=== PATIENT | female | born 1940 | race Caucasian/White ===

== ENCOUNTER 2023-09-19 06:17 | Inpatient (IN) | payer OTHER, SELFPAY ==
--- NOTE | 2023-08-23 08:08 | CM ---
Addendum entered by Milana Lora 09/03/23 10:27:
Spoke with patient's daughter, Estephania. She states that it will be difficult for them to get patient back and forth to outpatient PT. Discussed option of VN services which they feel would be best.
Addendum entered by Milana Lora 08/23/23 08:49:
Spoke again with patient. Her family would prefer that she spend one night in the hospital due to her 's care needs. Her children will stay with her . Reviewed orthopedic program and post surgical plans. She will go directly to
outpatient PT at .
Original Note:
Patient is scheduled for an elective L THR on 09/19/23- she is a same day patient. Spoke with patient prior to surgery. Patient had a L TKR at also as a same day patient) in 2021. Reintroduced role of Orthopedic Navigator. Patient reports that she
lives with her (who has dementia and requires care) in a one story home. There are no steps to enter and two steps inside the house. She currently functions independently. She has a cane and rolling walker. She had VN services through VN
after her TKR. PCP is Dr. Richard Lemus.
Discussed orthopedic program and post surgical plans. Reviewed that she will have VN services initially (medicare.gov website and ratings reviewed) and will then start outpatient PT. Patient selects VN (face sheet faxed to VN to facilitate
confirmation of benefits) for her home care needs and will come to for outpatient PT.
Patient is in agreement with plan and states that her daughters (she has three who live close by) will be home with her. Her daughters will also assist with the care of her .
Patient will complete online education.
Plan: Orthopedic Navigator will remain available to assist with the care of patient and will reassess discharge needs after surgery.
[2023-08-31 12:51] VITALS: BMI 25.0
[2023-08-31 13:56] LABS: Hematocrit 35.6 % (37.0-47.0); Hemoglobin 11.8 g/dL (12.0-16.0); Mean Corp Hgb Conc. 33.1 g/dL (33.0-37.0); Mean Corpuscular Volume 93.4 fL (81.0-99.0); Mean Platelet Volume 9.2 fL (7.4-10.4); Platelet Count 179 10^3/uL (130-400); Red Blood Cell Count 3.81 10^6/uL (4.20-5.40); Red Cell Dist. Width 12.2 % (11.5-14.5); White Blood Cell Count 4.8 10^3/uL (4.8-10.8)
[2023-08-31 14:34] LABS: ALT (SGPT) 32 U/L (0-35); AST (SGOT) 39 U/L (14-36); Albumin 4.1 g/dl (3.5-5.0); Alkaline Phosphatase 96 U/L (38-126); Blood Urea Nitrogen 24 mg/dl (7-17); Calcium 9.2 mg/dl (8.4-10.2); Carbon Dioxide 25 mmol/L (22-30); Chloride 106 mmol/L (98-107); Estimated Creatinine Clearance 38 ml/min; Glucose 96 mg/dl (70-99); Potassium 4.3 mmol/L (3.5-5.1); Sodium 140 mmol/L (135-145); Total Bilirubin 0.7 mg/dl (0.2-1.3); Total Protein 6.3 g/dl (6.3-8.2); eGFR > 60.00
--- NOTE | 2023-08-31 15:25 | HPS.HSE ---
Family Physician
-
Family Physician: Richard Lemus
Chief Complaint
-
Advanced primary osteoarthritis of the left hip.
History of Present Illness
The patient is an 82 year old female presenting today for advanced primary osteoarthritis of the left hip. The patient previously underwent an uncomplicated left total knee arthroplasty in [address] Cameron Preciado. She returns to
[facility] today with complaints of significant left hip pain associated with her osteoarthritis. She notes that her current pain is greatly interfering with her activities of daily living and is overall impacting her quality of life. She
has tried and failed multiple conservative treatment measures in the past for her pain. These conservative treatment measures include physical therapy, self directed therapeutic exercises, activity modification, corticosteroid injections, medical
management with Tylenol and NSAIDs, and the application of ice and/or heat. A recent x-ray of the left hip confirmed moderate osteoarthritis. She was determined to be in need of a left total hip arthroplasty. She denies any current complaints today
such as chest pain, shortness of breath, palpitations, nausea, vomiting, diarrhea, lightheadedness, dizziness, cough, sore throat, or fever.
Medical History
Past Medical History
Past Medical History: Reports Other
Additional Past Medical History:
1. Osteoarthritis, status post left total knee arthroplasty, 11/2021, by Dr. Cameron Preciado.
2. Elevated blood pressure without diagnosis of hypertension.
3. Hyperlipidemia.
4. TIA, 2013, without residual deficits.
5. Solitary fibrous tumor of pleura, status post surgical intervention.
6. GERD.
7. Small hiatal hernia.
8. Non-obstructive Schatzki ring.
9. History of H. pylori, treated.
10. GI ulcer, 2018, without bleed.
11. Diverticulosis.
12. Hepatic steatosis.
13. Bilateral renal parapelvic cysts.
14. Chronic superior endplate fracture of T12 and moderate compression fracture of L1.
15. Lumbosacral stenosis.
16. Sciatica.
17. Ambulatory dysfunction.
18. Mild anemia.
19. Osteoporosis.
20. Depression.
Past Surgical History: Reports Other
Additional Past Surgical History:
1. Left total knee arthroplasty, 11/2021, by Dr. Cameron Preciado.
2. Partial hysterectomy and bladder lift.
3. Cholecystectomy.
4. Cholangiogram.
5. Solitary fibrous tumor excision from pleura.
6. Endoscopy x2.
7. Colonoscopy.
Social History
Tobacco: Non-smoker
Alcohol: Other (Rare. )
Personal:
Living: Other (She lives with her in a 1 story cottage. Of note, her has dementia and significant spinal stenosis, requiring him to be wheelchair bound. )
Family History
Family History: Not pertinent
Allergies / Home Medications
Allergy/Medication List:
Home medications:
1. Atorvastatin 20 mg p.o. daily.
2. Acetaminophen 1000 mg p.o. every 6 hours as needed.
3. Escitalopram oxalate 10 mg p.o. every evening.
4. Omeprazole 40 mg p.o. daily.
5. Ascorbic acid 500 mg p.o. twice a day.
6. Cyanocobalamin 1000 mcg p.o. daily.
7. Famotidine 20 mg p.o. at bedtime.
8. Fiber 1 tablet p.o. daily.
9. Meloxicam 15 mg p.o. daily.
10. Trazodone 100 mg p.o. at bedtime.
11. Turmeric 500 mg p.o. daily.
Allergies: No known allergies.
Review of Systems
-
A 12 point ROS was completed and negative except as noted: Yes
Physical Exam
Vital Signs
Blood pressure 143/70. Heart rate 60. Respirations 18. Pulse ox 98%.
Height 5 feet, 1 inch. Weight 59.9 kg. BMI 25.0.
Physical Exam
General: Well Developed, Well Nourished and No Apparent Distress
HEENT: NormoCephalic, Moist mucous membranes, Atraumatic and PERRLA
Respiratory: Clear
Cardiac: Regular Rhythm
GI: Soft, Non Tender and Non Distended
Musculoskeletal: Other (Right hip: 5 internal, 10 external, with pain. Left hip: 5 internal, 15 external with movement of the left hip. )
Skin: Warm and Dry
Neuro: AO x 3 and Nonfocal/grossly intact
Laboratory Results
-
08/31/23 12:43
08/31/23 12:43
Laboratory Results
Total Bilirubin 0.7 mg/dl (0.2-1.3) 08/31/23 12:43
AST 39 U/L (14-36) H 08/31/23 12:43
ALT 32 U/L (0-35) 08/31/23 12:43
Alkaline Phosphatase 96 U/L (38-126) 08/31/23 12:43
Hemoglobin A1c 5.5.
MRSA nasal screen negative.
EKG 08/31/2023: Normal sinus rhythm.
Impression/Plan
-
CLEARANCES:
1. Primary medical, Kenna Sanders PA-C, cleared.
Primary medical phone number: [phone].
2. Dental waived. The patient has full dentures.
IMPRESSION/PLAN:
1. Advanced primary osteoarthritis of the left hip in need of a left total hip arthroplasty with Dr. Cameron Preciado on 09/19/2023. The benefits and risks of the procedure have been explained to the patient. The patient understands these risks and
wishes to proceed.
2. DVT prophylaxis: Aspirin with bilateral venous compression devices.
3. Ambulatory dysfunction: The patient will be placed on fall precautions post-operatively.
Patient's phone number: [phone].
Patient's contact (Estephania Cuadra - Daughter): [phone].
[2023-08-31 16:47] VITALS: BMI 25.0
[2023-09-01 09:41] LABS: Glycohemoglobin (HgbA1c) 5.5 % (4.0-5.6)
[2023-09-19] VITALS (13 sets, daily range): BP systolic 96–132; BP diastolic 45–73; PULSE 66; O2SAT 96–97; BMI 25.0
[2023-09-19] MEDS: CELEBREX 200 MG PO (06:36)
[2023-09-19] MEDS: TYLENOL 650 MG PO ×4 (06:36→20:35)
[2023-09-19] MEDS: NORMOSOL-R 1000 IV (07:00)
--- NOTE | 2023-09-19 10:13 | PTCARENOTE ---
Pt arrived to 2S in bed. Full assessment completed. L hip aqaucell C/D/I, LLE with decreased movement and sensation, neurovascular assessment otherwise intact. IVF infusing per order. Pt denies pain at this time. Bed locked and in the lowest
position, safety maintained. Oriented to room and call vito, daughter at bedside. Pt resting between care.
[2023-09-19] MEDS: VITAMIN B-12 1000 MCG PO (10:26)
[2023-09-19] MEDS: PROTONIX 40 MG PO (10:27)
[2023-09-19] MEDS: LIPITOR 20 MG PO (10:27)
[2023-09-19] MEDS: PEPCID 20 MG PO (10:27)
[2023-09-19] MEDS: NSS 1000 IV (10:30)
[2023-09-19] MEDS: ROXICODONE 5 MG PO (10:55)
[2023-09-19] MEDS: DILAUDID 0.5 MG IV (13:28)
--- NOTE | 2023-09-19 14:41 | W.PN.ORTHO ---
Today's Communication / Plan
-
D/c when clinically stable.
Assessment
.
Distal Motor Intact: Yes
Dressing:
Clean, dry and intact.
Assessment:
L hip OA s/p Bartolo timmons/ Dr Preciado 09/19/23
- s/p L TKA, 11/2021, by Dr Preciado
DVT prophylaxis - ASA, b/l venous compression devices
Elevated blood pressure without diagnosis of HTN - monitor BP
- Ensure adequate pain control
GERD, small hiatal hernia, and GI ulcer, 2018, without bleed - continue Pepcid, PPI therapy
- Minimize NSAIDs as able
Sciatica - continue Gabapentin HS - consider increased dose to accommodate for post-surgical pain
Ambulatory dysfunction - on fall precautions
Mild anemia - non-invasive hgb in AM
Hyperlipidemia
TIA, 2013, without residual deficits
Solitary fibrous tumor of pleura, status post surgical intervention
Non-obstructive Schatzki ring
History of H. pylori, treated
Diverticulosis
Hepatic steatosis
Bilateral renal parapelvic cysts
Chronic superior endplate fracture of T12 and moderate compression fracture of L1
Lumbosacral stenosis
Osteoporosis
Depression
Plan
.
Surgery / Date: Bartolo timmons/ Dr Preciado 09/19/23
DVT Prophylaxis: Aspirin
Activity:
Out of bed.
PT/OT
Discharge Plan: Home w/ VN
Subjective
.
.:
Patient resting comfortably in bed.
Reported visual hallucination after IV Dilaudid - will d/c.
Denies any other new complaints.
Vital Signs and Labs
.
Vital Signs and Labs:
Lab Results
08/31/23 12:43
08/31/23 12:43
Temp Pulse Resp BP Pulse Ox
97.2 F 61 17 121/62 96
09/19/23 09:45 06/26/24 09:55 09/19/23 09:55 09/19/23 09:55 09/19/23 09:55
Physical Exam
-
HEENT: No pallor, cyanosis, or jaundice. Throat clear.
NECK: Supple. No JVD.
RESPIRATORY: Lungs clear to auscultation.
CVS: S1, S2 normal. RRR.�
ABDOMEN: Soft, non-tender. No distension.
EXTREMITIES: Strength equal, no calf pain with palpation/dorsiflexion. Calves soft.
PREMISES TECHNICIAN: AOx3. No focal deficits. chrome worker grossly intact
[2023-09-19] MEDS: ROXICODONE 10 MG PO (15:47)
[2023-09-19] MEDS: ANCEF 5 IV (15:48)
[2023-09-19] MEDS: LEXAPRO 10 MG PO (17:20)
[2023-09-19] MEDS: ASPIRIN 325 MG PO (17:20)
[2023-09-19] MEDS: COMPAZINE 5 MG IV (18:36)
[2023-09-19] MEDS: SENOKOT 17.1999999999999993 MG PO (20:35)
[2023-09-19] MEDS: COLACE 100 MG PO (20:35)
[2023-09-19] MEDS: DECADRON 4 MG PO (20:35)
[2023-09-19] MEDS: BACTROBAN 2% OINTMENT 1 APPLIC NASAL (20:35)
[2023-09-19] MEDS: DESYREL 100 MG PO (22:03)
[2023-09-19] MEDS: NEURONTIN 300 MG PO (22:03)
[2023-09-20] MEDS: ANCEF 5 IV (00:25)
[2023-09-20] MEDS: TYLENOL 650 MG PO ×4 (00:25→12:55)
[2023-09-20 04:34] VITALS: BP 99/57
[2023-09-20] MEDS: ROXICODONE 10 MG PO (05:46)
[2023-09-20] MEDS: PROTONIX 40 MG PO (07:48)
[2023-09-20] MEDS: DECADRON 4 MG PO (07:48)
[2023-09-20] MEDS: VITAMIN B-12 1000 MCG PO (07:49)
[2023-09-20] MEDS: PEPCID 20 MG PO (07:49)
[2023-09-20] MEDS: ASPIRIN 325 MG PO (07:49)
[2023-09-20] MEDS: LIPITOR 20 MG PO (07:49)
[2023-09-20] MEDS: COLACE 100 MG PO (07:49)
[2023-09-20] MEDS: BACTROBAN 2% OINTMENT 1 APPLIC NASAL (07:51)
[2023-09-20] MEDS: SENOKOT 17.1999999999999993 MG PO (07:51)
[2023-09-20 07:53] VITALS: BP 101/51
--- NOTE | 2023-09-20 08:57 | CM ---
Addendum entered by Milana Lora 09/20/23 12:22:
Met with patient after therapy. She has no concerns about going home. Reviewed VN services again and recommended she have someone with her for all mobility initially.
Original Note:
Reviewed chart and held rounds with PT, OT and nursing. Patient admitted as planned for elective L THR. Met with patient at bedside. Confirmed information previously obtained for assessment. Also discussed discharge plans. The plan is for patient to
return home at discharge. Her daughters will be staying with her and her . Reviewed VN services including start of care (tentatively 09/20), services to be ordered (PT, OT, SN) and frequency/duration of services. Options list provided and PAC
data reviewed. Patient selects VN.
Patient has a rolling walker, raised toilet seat, hip kit (which her daughter got yesterday) and a cane at home.
VN referral was completed and sent to [facility] through [email or web address] with request for start of care on 09/20. Confirmation received of their ability to accept case. return to factory clerk to fax discharge instructions to [facility] when complete.
Patient will use [facility] pharmacy for discharge prescriptions.
Discharge plans were reviewed with patient's daughter, Estephania, on 09/19.
[2023-09-20 09:45] VITALS: BP 130/58; BP 131/55; PULSE 59; O2SAT 95
[2023-09-20 12:23] VITALS: BP 99/73; PULSE 63; O2SAT 96
--- NOTE | 2023-09-20 12:35 | W.PN.ORTHO ---
Today's Communication / Plan
-
D/c today since clinically stable, did well w/ PT and OT.
Assessment
.
Distal Motor Intact: Yes
Dressing:
Clean, dry and intact.
Assessment:
L hip OA s/p L MALCOLM w/ Dr Preciado 09/19/23
- s/p L TKA, 11/2021, by Dr Preciado
DVT prophylaxis - ASA, b/l venous compression devices
N/V POD 1 - likely 2* multiple medications on empty stomach - Compazine provided w/ relief
- Continue Compazine prn upon d/c
- Continue home Protonix and Pepcid
Elevated blood pressure without diagnosis of HTN - BPs stable
- Ensured adequate pain control
GERD, small hiatal hernia, and GI ulcer, 2018, without bleed - continue Pepcid, PPI therapy
- Minimize NSAIDs as able
Sciatica - continue Gabapentin HS - consider increased dose to accommodate for post-surgical pain
Ambulatory dysfunction - on fall precautions
Mild anemia - non-invasive hgb 10.5 POD 1
- Asymptomatic, hemodynamically stable
Hyperlipidemia
TIA, 2013, without residual deficits
Solitary fibrous tumor of pleura, status post surgical intervention
Non-obstructive Schatzki ring
History of H. pylori, treated
Diverticulosis
Hepatic steatosis
Bilateral renal parapelvic cysts
Chronic superior endplate fracture of T12 and moderate compression fracture of L1
Lumbosacral stenosis
Osteoporosis
Depression
Plan
.
Surgery / Date: L MALCOLM w/ Dr Preciado 09/19/23
DVT Prophylaxis: Aspirin
Activity:
Out of bed.
PT/OT
Discharge Plan: Home w/ VN
Subjective
.
.:
Patient resting comfortably in her chair this AM.
One episode of vomiting today - improving w/ Compazine this AM. Feels much better.
Denies any other new significant complaints.
L hip pain overall well controlled w/ current meds.
Eager for potential d/c today.
Vital Signs and Labs
.
Vital Signs and Labs:
Lab Results
08/31/23 12:43
08/31/23 12:43
Temp Pulse Resp BP Pulse Ox
97.8 F 63 18 101/51 94
09/20/23 07:53 09/20/23 07:53 09/20/23 07:53 09/20/23 07:53 09/20/23 07:53
Non-invasive Hgb result: 10.5
Physical Exam
-
HEENT: No pallor, cyanosis, or jaundice. Throat clear.
NECK: Supple. No JVD.
RESPIRATORY: Lungs clear to auscultation.
CVS: S1, S2 normal. RRR.�
ABDOMEN: Soft, non-tender. No distension.
EXTREMITIES: Strength equal, no calf pain with palpation/dorsiflexion. Calves soft.
AQUATIC PERFORMER: AOx3. No focal deficits. reservoir engineer grossly intact
--- NOTE | 2023-09-20 12:50 | W.DS.TRANS ---
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
-
Discharge Instructions:
Sleep Apnea Risk Low
Discharge Diagnosis/Procedures L hip OA s/p L MALCOLM w/ Dr Preciado 09/19/23
Diet Other diet
Additional Diets Diabetic carb controlled x1 week for wound
healing/infection prevention; then resume
regular diet
Activity As tolerated,With Walker
Driving Restrictions Not until seen by your
Bathing Restrictions OK to Shower
Other Services VN,PT,OT
Wound Care Dressing to be removed 1 week post-surgery.
Instructions:
Stand-Alone Forms: Total Hip/Knee Replacement D/C
Changes to Home Medications: Yes
Discharge Medications:
DC Medications w/original date entered in [employer]
atorvastatin 20 mg tablet 20 mg PO DAILY High Cholesterol 12/05/21
escitalopram oxalate 10 mg tablet 10 mg PO QPM Depression 12/05/21
omeprazole 40 mg capsule,delayed release 40 mg PO DAILY Fluid Retention/Swelling 12/05/21
ascorbic acid (vitamin C) 500 mg tablet (Vitamin C) 500 mg PO BID Supplement 08/30/23
cyanocobalamin (vitamin B-12) 1,000 mcg tablet (Vitamin B-12) 1,000 mcg PO DAILY Supplement 08/30/23
famotidine 20 mg tablet 20 mg PO DAILY Gastrointestinal Issue 08/30/23
fiber 1 tab PO DAILY Constipation 08/30/23
trazodone 100 mg tablet 100 mg PO HS Sleep 08/30/23
turmeric 500 mg PO DAILY Supplement 08/30/23
mupirocin 2 % topical ointment 1 applic intranasal BID #1 tube 08/31/23
gabapentin 300 mg tablet 300 mg PO HS Neurological Condition 09/19/23
acetaminophen 500 mg tablet (Acetaminophen Extra Strength) 1,000 mg (2 x 500 mg) PO Q6H #60 tabs 09/20/23
aspirin 325 mg tablet 325 mg PO DAILY #30 tabs 09/20/23
dexamethasone 4 mg tablet 4 mg PO BID Anti-inflammatory #5 tabs 06/27/24
docusate sodium 100 mg capsule 100 mg PO BID #30 caps 09/20/23
oxycodone 5 mg tablet 5 - 10 mg (1 - 2 x 5 mg) PO Q6H PRN moderate-severe pain #30 tabs 09/20/23
prochlorperazine maleate 5 mg tablet 5 mg PO Q8H PRN nausea and vomiting #30 tabs 09/20/23
sennosides 8.6 mg tablet (Senna Laxative) 17.2 mg (2 x 8.6 mg) PO BID #30 tabs 09/20/23
Home Medication Changes
acetaminophen 500 mg tablet (Acetaminophen Extra Strength) 1,000 mg (2 x 500 mg) PO Q6H #60 tabs 09/20/23
aspirin 325 mg tablet 325 mg PO DAILY #30 tabs 09/20/23
dexamethasone 4 mg tablet 4 mg PO BID Anti-inflammatory #5 tabs 09/20/23
docusate sodium 100 mg capsule 100 mg PO BID #30 caps 09/20/23
oxycodone 5 mg tablet 5 - 10 mg (1 - 2 x 5 mg) PO Q6H PRN moderate-severe pain #30 tabs 09/20/23
prochlorperazine maleate 5 mg tablet 5 mg PO Q8H PRN nausea and vomiting #30 tabs 09/20/23
sennosides 8.6 mg tablet (Senna Laxative) 17.2 mg (2 x 8.6 mg) PO BID #30 tabs 09/20/23
Pending Results: No
[2023-09-20 13:01] VITALS: BP 144/53
== END 2023-09-20 14:28 | disposition home health service (06) | DRG 470 ==
LOC: 2 SOUTH 06:17
PROVIDERS: ADMITTING PHYSICIAN Orthopaedic Surgery; FAMILY PHYSICIAN Family Medicine
PROC: 0SRB039 Replacement of Left Hip Joint with Ceramic Synthetic Substitute, Cemented, Open Approach (ICD-10-PCS; 2023-09-19)
DX: M16.12 Unilateral primary osteoarthritis, left hip (principal); K76.0 Fatty (change of) liver, not elsewhere classified; D64.9 Anemia, unspecified; F32.A Depression, unspecified; K22.2 Esophageal obstruction; N28.1 Cyst of kidney, acquired; E78.5 Hyperlipidemia, unspecified; K21.9 Gastro-esophageal reflux disease without esophagitis; K44.9 Diaphragmatic hernia without obstruction or gangrene; R03.0 Elevated blood-pressure reading, without diagnosis of hypertension; K57.90 Diverticulosis of intestine, part unspecified, without perforation or abscess without bleeding; M48.07 Spinal stenosis, lumbosacral region; M54.16 Radiculopathy, lumbar region; M81.0 Age-related osteoporosis without current pathological fracture; R26.89 Other abnormalities of gait and mobility; R11.2 Nausea with vomiting, unspecified; Z96.652 Presence of left artificial knee joint; Z79.899 Other long term (current) drug therapy; Z87.11 Personal history of peptic ulcer disease; Z86.73 Personal history of transient ischemic attack (TIA), and cerebral infarction without residual deficits; Z87.09 Personal history of other diseases of the respiratory system; Z90.49 Acquired absence of other specified parts of digestive tract; Z87.81 Personal history of (healed) traumatic fracture; Z88.1 Allergy status to other antibiotic agents
CPT/HCPCS: 36415; 73502; 80053; 83036; 85027; 86850; 86900; 86901; 87070; 93005; 97110; 97116; 97163; 97167; 97530; 97535; C1713; C1776

== ENCOUNTER 2023-09-27 15:03 | Emergency (ER) | payer OTHER, SELFPAY ==
[2023-09-27 15:18] VITALS: BP 143/95
--- NOTE | 2023-09-27 16:42 | ED.MUSCINJ ---
HPI-Injury
General
Chief Complaint: Musculo-Skeletal Complaint
Source: patient and family
Exam Limitations: none
Time Seen by Provider: 09/27/23 16:00
Nursing documentation reviewed up to this point in time: agreed with
History of Present Illness-Injury
Initial Injury comments:
82-year-old female with history of TIA, HLD, GERD had a left total hip replacement on 09/18/2023. States she was doing very well until yesterday she developed pain across the front of her left ankle and lower part of her calf. Denies shortness of
breath or chest pain.
Past History
Past History
ED Past Medical History: CVA (TIA), GERD and Hypercholesterolemia
ED Past Surgical History: Gynecological and Orthopedic (Left knee replacement 2021, left total hip replacement 09/18/2023)
Social History
Tobacco: Non-smoker
Alcohol: None
Drug: None
Personal:
Living: with family
Employment: Retired
Family History
Family History: Other (Noncontributory)
Review of Systems
Review of Systems
Allergies reviewed?: Yes
All Other Systems: ROS reviewed and negative except as documented in HPI and ROS
Constitutional: Denies fever
Respiratory: Denies trouble breathing
Cardiac: Denies chest pain
ABD/GI: Denies abdominal pain or nausea
: Denies dysuria, difficulty voiding or urgency
Musculoskeletal: Reports other (Pain left ankle and lower calf. Left hip pain is improving and she feels she is healing well from her DOMINIQUE)
Skin: Reports no symptoms
Neurological: Reports no symptoms
Phy Exam
Physical Exam
Physical Exam:
GENERAL: No acute distress. A&Ox3.
CONSTITUTIONAL: Afebrile. clear.
CARDIOVASCULAR: Regular rate and rhythm, no murmurs, no rubs.
GI: Soft, nontender
MUSCULOSKELETAL: No redness, warmth or swelling of the left lower extremity. Tender to palpate mid to lower calf. Moves with ease. Well perfused.
SKIN: Warm, dry, pink
PSYCH: Normal mood and affect. Well kept, interactive and appropriate
NEUROLOGIC: Awake, alert and oriented. No focal neurological deficits
Injury Course
Orders/Labs/Results
Orders:
Orders
09/27/23 15:23
Ankle, left 3 view CR [CR Ankle - Left Min 3 Views ] Urgent
Comment:
Reason For Exam: pain
09/27/23 16:04
US Periph Venous LOWER Ext LT Urgent
Comment:
Reason For Exam: pain about ankle and lower calf, recent surgery
09/27/23 18:22
Apixaban [Eliquis] 10 mg PO NOW STA
Barrel Washer Machine consulted with Physician
Barrel Washer Machine consulted with physician?: Yes
Name of Physician Consulted: Radha
MDM/Problems Addressed
Differential Diagnosis Includes:
DVT, musculoskeletal pain
MDM/Problems Addressed:
82-year-old female with history of TIA, HLD, GERD had a left total hip replacement on 09/18/2023. States she was doing very well until yesterday she developed pain across the front of her left ankle and lower part of her calf. Denies shortness of
breath or chest pain.
6:15 PM
IMPRESSION:
Linear noncompressible hypoechoic area in the mid calf deep to the lesser saphenous vein considered suspicious for thrombus but somewhat difficult to localize.
US equivocal, will give pt option of starting Eliquis.
Ultrasound result discussed with the patient and daughter, offered to have her stay with her daily aspirin and have the ultrasound repeated in a week or start Eliquis. She has a prescheduled appointment with her PCP in 5 days. She opts to stop the
aspirin, start the Eliquis and get a repeat ultrasound through her PCP.
Case discussed with Dr. Garcia who agrees with assessment and plan.
*Critical Care Note
Total Time (30-74mins, 75-104mins- exclusive of procedures): Not Applicable
ED Attending Note
-
Portions of this chart may have been created with voice recognition software.� Occasional wrong word or��sound alike� substitutions may have occurred due to the inherent limitations of voice recognition software.
Discharge Plan
Departure
Patient Disposition: Home (Routine Discharge)
Date of Disposition: 09/27/23
Time of Disposition: 18:22
Patient with high blood pressure during this ER visit?: No
Condition: Good
Discharge Problem:
DVT (deep venous thrombosis)
Instructions: Apixaban, Deep vein thrombosis - Discharge instructions
Prescriptions:
New
Eliquis 5 mg tablet
5 mg PO BID Qty: 70 0RF
Rx Instructions:
10 mg BID x 7 days then 5 mg BID
No Action
atorvastatin 20 mg Tablet
20 mg PO DAILY
omeprazole 40 mg Capsule,Delayed Release(Dr/Ec)
40 mg PO DAILY
escitalopram oxalate 10 mg Tablet
10 mg PO QPM
famotidine 20 mg Tablet
20 mg PO DAILY
trazodone 100 mg Tablet
100 mg PO HS
cyanocobalamin (vitamin B-12) [Vitamin B-12] 1,000 mcg Tablet
1,000 mcg PO DAILY
ascorbic acid (vitamin C) [Vitamin C] 500 mg Tablet
500 mg PO BID
fiber Tablet
1 tab PO DAILY
turmeric
500 mg PO DAILY
Hold Instructions: Resume on 09/26/23.
mupirocin 2 % ointment
1 applic intranasal BID Qty: 1 0RF
Patient Comments:
applied this am 09/19/23 at 0500
gabapentin 300 mg Tablet
300 mg PO HS
aspirin 325 mg Tablet
325 mg PO DAILY Qty: 30 0RF
Rx Instructions:
Take daily x4 weeks for blood clot prevention.
prochlorperazine maleate 5 mg Tablet
5 mg PO Q8H PRN (Reason: nausea and vomiting) Qty: 30 0RF
docusate sodium 100 mg Capsule
100 mg PO BID Qty: 30 0RF
dexamethasone 4 mg Tablet
4 mg PO BID Qty: 5 0RF
Rx Instructions:
Restart night of discharge and continue twice a day until finished.
Take with food.
oxycodone 5 mg Tablet
5 - 10 mg PO Q6H PRN (Reason: moderate-severe pain) Qty: 30 0RF
Rx Instructions:
1 tab for moderate pain, 2 if severe.
Dx total joint
sennosides [Senna Laxative] 8.6 mg Tablet
17.2 mg PO BID Qty: 30 0RF
acetaminophen [Acetaminophen Extra Strength] 500 mg tablet
1,000 mg PO Q6H Qty: 60 0RF
Rx Instructions:
DO NOT exceed >4000 mg daily.
Referrals:
Richard Lemus MD [Family Provider] - Keep scheduled appt
Activity Restrictions/Additional Instructions:
As we discussed, we will treat you for a clot with Eliquis
You may stop your Aspirin while on the Eliquis
I sent a prescription to your pharmacy for Eliquis to take : 10 mg twice a day for 7 days then 5 mg twice a day until your doctor tells you to stop
Have repeat ultrasound in 7-10 days.
Keep your appointment with your PCP in 5 days.
Interventions
Interventions:
*Risk Screen - Suicide Last Done: 09/27/23 15:18
*General Assessment Last Done: 09/27/23 15:18
*Neglect/Abuse Screening Last Done: 09/27/23 15:18
ED- Fall Risk Assessment Last Done: 09/27/23 19:11
*ED COVID-19 Vaccine History Last Done: 09/27/23 19:11
*Nursing Disposition Last Done: 09/27/23 19:11
ED-Musculoskeletal Assessment Last Done: 09/27/23 18:18
Discharge Date and Time
Print Language: URUGUAYAN
[2023-09-27 18:16] VITALS: BP 100/82; BMI 25.4
[2023-09-27] MEDS: ELIQUIS 10 MG PO (18:50)
== END 2023-09-27 19:11 | disposition home or self-care (01) ==
LOC: EMR 15:03
PROVIDERS: EMERGENCY PHYSICIAN Emergency Medicine; FAMILY PHYSICIAN Family Medicine
DX: I82.462 Acute embolism and thrombosis of left calf muscular vein (principal); K21.9 Gastro-esophageal reflux disease without esophagitis; E78.00 Pure hypercholesterolemia, unspecified; Z86.73 Personal history of transient ischemic attack (TIA), and cerebral infarction without residual deficits
CPT/HCPCS: 99284; 73610; 93971

== ENCOUNTER 2023-10-02 11:05 | Emergency (ER) | payer OTHER, SELFPAY ==
[2023-10-02 11:06] VITALS: BP 115/72
--- NOTE | 2023-10-02 12:04 | ED.GENMED ---
History of Present Illness
General
Chief Complaint: Musculo-Skeletal Complaint
Time Seen by Provider: 10/02/23 11:35
History of Present Illness
History of Present Illness:
82-year-old female presents the emergency department for evaluation of left gluteal pain after a fall last night. She is 2-week status post left total hip arthroplasty performed by Dr. Preciado. Rehab has been going well until her trip and fall
last night. She landed on her buttocks and had intense pain that prevented her from ambulating this morning. Of note she is also on Eliquis for a DVT diagnosed recently
Past History
Past History
ED Past Medical History: CVA (TIA), GERD and Hypercholesterolemia
ED Past Surgical History: Gynecological and Orthopedic (Left knee replacement 2021, left total hip replacement 09/18/2023)
Social History
Tobacco: Non-smoker
Alcohol: None
Drug: None
Personal:
Living: with family
Employment: Retired
Family History
Family History: Other (Noncontributory)
Review of Systems
Review of Systems
Allergies reviewed?: Yes
All Other Systems: ROS reviewed and negative except as documented in HPI and ROS
Phy Exam
Physical Exam
Physical Exam:
GEN: Well appearing, NAD, WDWN
HEENT: Oral mucosa moist, no scleral icterus
Cardiac: Regular rate
Lung: No respiratory distress, no tachypnea
MSK: Status post left MALCOLM, incision is well-approximated with no dehiscence or discharge. Left hip range of motion is normal. Numerous ecchymoses to the left gluteal region as well as the left lateral thigh which are likely postoperative in nature.
Tenderness to the left gluteal region
Skin: Good color, no pallor or jaundice, no rashes
Neuro: AO x3, moves all extremities freely
Psych: Calm, cooperative
Course
Orders/Labs/Results
Orders:
Orders
10/02/23 11:47
CR Hip - LT w/wo Pel 2-3 Vw* Urgent
Comment:
Reason For Exam: fall, recent L MALCOLM
Include a pelvis x-ray?: Yes
10/02/23 12:33
Acetaminophen [Tylenol] 1,000 mg PO NOW STA
Oxycodone [Roxicodone] 5 mg PO NOW STA
Vital Signs
Initial and Last Documented VS:
Initial Vital Signs
Temp Pulse Resp BP Pulse Ox
98.5 F 63 18 115/72 97
10/02/23 11:06 10/02/23 11:06 10/02/23 11:06 10/02/23 11:06 10/02/23 11:06
Last Documented Vital Signs
Temp Pulse Resp BP Pulse Ox
98.5 F 62 18 120/71 97
10/02/23 11:06 10/02/23 13:00 10/02/23 13:00 10/02/23 13:00 10/02/23 11:06
MDM/Problems Addressed
MDM/Problems Addressed:
X-rays of the left hip and pelvis show no evidence for acute osseous abnormality. The patient was given analgesics and was ambulated with walker assistance and tolerated this well. Educated her to ice liberally to prevent or decrease hematoma
formation given that she is on anticoagulants
*Critical Care Note
Total Time (30-74mins, 75-104mins- exclusive of procedures): Not Applicable
ED Attending Note
-
Portions of this chart may have been created with voice recognition software.� Occasional wrong word or��sound alike� substitutions may have occurred due to the inherent limitations of voice recognition software.
Discharge Plan
Departure
Patient Disposition: Home (Routine Discharge)
Date of Disposition: 10/02/23
Time of Disposition: 13:28
Patient with high blood pressure during this ER visit?: No
Discharge Problem:
Contusion of left buttock
Instructions: Contusion (DC)
Prescriptions:
New
oxycodone 5 mg tablet
5 mg PO Q8H PRN (Reason: Pain) Qty: 10 0RF
No Action
atorvastatin 20 mg Tablet
20 mg PO DAILY
omeprazole 40 mg Capsule,Delayed Release(Dr/Ec)
40 mg PO DAILY
escitalopram oxalate 10 mg Tablet
10 mg PO QPM
famotidine 20 mg Tablet
20 mg PO DAILY
trazodone 100 mg Tablet
100 mg PO HS
cyanocobalamin (vitamin B-12) [Vitamin B-12] 1,000 mcg Tablet
1,000 mcg PO DAILY
ascorbic acid (vitamin C) [Vitamin C] 500 mg Tablet
500 mg PO BID
fiber Tablet
1 tab PO DAILY
turmeric
500 mg PO DAILY
Hold Instructions: Resume on 09/26/23.
mupirocin 2 % ointment
1 applic intranasal BID Qty: 1 0RF
Patient Comments:
applied this am 09/19/23 at 0500
gabapentin 300 mg Tablet
300 mg PO HS
aspirin 325 mg Tablet
325 mg PO DAILY Qty: 30 0RF
Rx Instructions:
Take daily x4 weeks for blood clot prevention.
prochlorperazine maleate 5 mg Tablet
5 mg PO Q8H PRN (Reason: nausea and vomiting) Qty: 30 0RF
docusate sodium 100 mg Capsule
100 mg PO BID Qty: 30 0RF
dexamethasone 4 mg Tablet
4 mg PO BID Qty: 5 0RF
Rx Instructions:
Restart night of discharge and continue twice a day until finished.
Take with food.
oxycodone 5 mg Tablet
5 - 10 mg PO Q6H PRN (Reason: moderate-severe pain) Qty: 30 0RF
Rx Instructions:
1 tab for moderate pain, 2 if severe.
Dx total joint
sennosides [Senna Laxative] 8.6 mg Tablet
17.2 mg PO BID Qty: 30 0RF
acetaminophen [Acetaminophen Extra Strength] 500 mg tablet
1,000 mg PO Q6H Qty: 60 0RF
Rx Instructions:
DO NOT exceed >4000 mg daily.
Eliquis 5 mg tablet
5 mg PO BID Qty: 70 0RF
Rx Instructions:
10 mg BID x 7 days then 5 mg BID
Referrals:
Richard Lemus MD [Family Provider] -
Activity Restrictions/Additional Instructions:
Ice often, as you are more likely to develop a hematoma (collection of blood) due to the Eliquis
Take pain medication as needed
Continue rehab exercises
Interventions
Interventions:
*Risk Screen - Suicide Last Done: 10/02/23 11:42
*General Assessment Last Done: 10/02/23 11:42
*Neglect/Abuse Screening Last Done: 10/02/23 11:42
ED- Fall Risk Assessment Last Done: 10/02/23 12:05
*ED COVID-19 Vaccine History Last Done: 10/02/23 11:42
*Nursing Disposition Last Done: 10/02/23 13:57
ED-Musculoskeletal Assessment Last Done: 10/02/23 11:42
Discharge Date and Time
Discharge Date/Time: 10/02/23 13:59
Print Language: PASHTO
[2023-10-02 12:05] VITALS: BP 128/63
[2023-10-02 12:11] VITALS: BP 119/65
[2023-10-02] MEDS: TYLENOL 1000 MG PO (12:42)
[2023-10-02] MEDS: ROXICODONE 5 MG PO (12:42)
[2023-10-02 13:00] VITALS: BP 120/71
== END 2023-10-02 13:59 | disposition home or self-care (01) ==
LOC: EMR 11:05
PROVIDERS: EMERGENCY PHYSICIAN Emergency Medicine; FAMILY PHYSICIAN Family Medicine
DX: S30.0XXA Contusion of lower back and pelvis, initial encounter (principal); W01.0XXA Fall on same level from slipping, tripping and stumbling without subsequent striking against object, initial encounter; E78.00 Pure hypercholesterolemia, unspecified; K21.9 Gastro-esophageal reflux disease without esophagitis; Z79.01 Long term (current) use of anticoagulants; Z98.890 Other specified postprocedural states; Z96.642 Presence of left artificial hip joint; Z96.652 Presence of left artificial knee joint; Z86.73 Personal history of transient ischemic attack (TIA), and cerebral infarction without residual deficits; Z88.5 Allergy status to narcotic agent
CPT/HCPCS: 99283; 73502

== ENCOUNTER → 2023-10-23 11:28 | Outpatient (REF) | payer OTHER, SELFPAY | LOC: HWRAD 11:28 | PROVIDERS: ATTENDING PHYSICIAN Physician Assistant Medical | DX: I82.462 Acute embolism and thrombosis of left calf muscular vein (principal) | CPT/HCPCS: 93971 ==

== ENCOUNTER 2023-11-12 15:53 | Outpatient (RCR) | payer OTHER, SELFPAY | END 2023-11-12 23:59 | disposition home or self-care (01) | LOC: RPT 15:53 | PROVIDERS: ATTENDING PHYSICIAN Orthopaedic Surgery; FAMILY PHYSICIAN Family Medicine | DX: R26.89 Other abnormalities of gait and mobility (principal); Z96.642 Presence of left artificial hip joint; Z73.6 Limitation of activities due to disability | CPT/HCPCS: 97110; 97112; 97162 ==

== ENCOUNTER 2023-12-14 14:04 | Outpatient (RCR) | payer OTHER, SELFPAY | END 2023-12-14 23:59 | disposition home or self-care (01) | LOC: RPT 14:04 | PROVIDERS: ATTENDING PHYSICIAN Orthopaedic Surgery; FAMILY PHYSICIAN Family Medicine | DX: Z47.1 Aftercare following joint replacement surgery (principal); Z96.642 Presence of left artificial hip joint; R26.89 Other abnormalities of gait and mobility; Z73.6 Limitation of activities due to disability | CPT/HCPCS: 97110; 97112 ==

== ENCOUNTER 2024-01-04 23:33 | Observation (INO) | payer OTHER, SELFPAY ==
[2024-01-04] VITALS (8 sets, daily range): BP systolic 125–170; BP diastolic 54–79; BMI 24.7
[2024-01-04 15:59] LABS: % Basophils 0.3 % (0-2); % Eosinophils 1.9 % (0-6); % Immature Granulocytes 0.4 % (0-0.5); % Lymphocytes 28.5 % (20.5-51.1); % Monocytes 10.2 % (1.7-9.3); % Neutrophils 58.7 % (42.2-75.2); Absolute Eosinophils 0.1 10^3/uL (0-0.7); Absolute Lymphocytes 1.9 10^3/uL (1.2-3.4); Absolute Monocytes 0.7 10^3/uL (0.1-0.6); Absolute Neutrophils 3.9 10^3/uL (1.4-6.5); Hematocrit 36.5 % (37.0-47.0); Hemoglobin 12.6 g/dL (12.0-16.0); Mean Corp Hgb Conc. 34.5 g/dL (33.0-37.0); Mean Corpuscular Hgb 29.6 pg (27.0-31.0); Mean Corpuscular Volume 85.9 fL (81.0-99.0); Mean Platelet Volume 9.9 fL (7.4-10.4); Nucleated Red Blood Cells % 0 %; Platelet Count 178 10^3/uL (130-400); Red Blood Cell Count 4.25 10^6/uL (4.20-5.40); Red Cell Dist. Width 12.4 % (11.5-14.5); White Blood Cell Count 6.7 10^3/uL (4.8-10.8)
[2024-01-04 16:09] LABS: ALT (SGPT) 25 U/L (0-35); AST (SGOT) 33 U/L (14-36); Albumin 4.4 g/dl (3.5-5.0); Alkaline Phosphatase 107 U/L (38-126); Blood Urea Nitrogen 20 mg/dl (7-17); Carbon Dioxide 20 mmol/L (22-30); Chloride 106 mmol/L (98-107); Estimated Creatinine Clearance 40 ml/min; Glucose 178 mg/dl (70-99); Potassium 3.9 mmol/L (3.5-5.1); Sodium 140 mmol/L (135-145); Total Bilirubin 0.6 mg/dl (0.2-1.3); Total Protein 6.4 g/dl (6.3-8.2); eGFR > 60.00
--- NOTE | 2024-01-04 16:34 | EDRN ---
Dr. Urias in to see pt at this time.
--- NOTE | 2024-01-04 16:39 | ED.GENMED ---
Addendum entered and electronically signed by Chrissy Urias MD 01/04/24 22:22:
Unfortunately as patient was leaving the emergency department patient started develop nausea vomiting with dizziness. Will give additional antiemetics. Given the multiple antiemetics and the recurrence of symptoms we will admit patient. Discussed
with hospitalist who accepted.
Original Note:
History of Present Illness
General
Chief Complaint: Dizziness
Time Seen by Provider: 01/04/24 16:18
History of Present Illness
History of Present Illness:
Patient is a 83-year-old woman with history of TIA, reflux presenting to the emergency department with dizziness. Patient states for the past 2 days she has been having dizziness nausea and vomiting. She states that the dizziness yesterday with
intermittent. Today has been constant. She feels off balance lightheaded and dizzy. She does state that it does occur sometimes when she goes from sitting to standing. The symptoms also occurs with certain head movements. She is also has some
pressure in her head. No history of migraines. No fevers or chills. No belly pain. No recent falls. Patient states that she is vomiting secondary to the dizziness. She denies any numbness tingling. No weakness. No double vision. No
difficulty swallowing. No hearing changes. No sick contacts. Per medic she did receive droperidol with some relief however symptoms returned and was given a second dose without any improvement.
Past History
Past History
ED Past Medical History: CVA (TIA), GERD and Hypercholesterolemia
ED Past Surgical History: Gynecological and Orthopedic (Left knee replacement 2021, left total hip replacement 09/18/2023)
Social History
Tobacco: Non-smoker
Alcohol: None
Drug: None
Personal:
Living: with family
Employment: Retired
Family History
Family History: Other (Noncontributory)
Phy Exam
Physical Exam
Physical Exam:
GENERAL: Actively vomiting
HEENT: normocephalic, extraocular movements intact, moist oral mucosa
NECK: normal inspection
RESPIRATORY: no respiratory distress, clear to auscultation bilaterally
CARDIOVASCULAR: regular rate and rhythm
ABDOMEN/: soft, non-distended, non-tender to palpation, no rebound or guarding
EXTREMITIES: non-tender, no edema/swelling
NEUROLOGIC: NEUROLOGIC: alert and oriented x 3, cranial nerves II-XII intact, right upper extremity strength 5/5, left upper extremity strength 5/5, right lower extremity strength 5/5, left lower extremity strength 5/5, normal sensation to light
touch, normal [id number] and [id number], gait not tested formally
SKIN: warm
Course
Orders/Labs/Results
Orders:
Orders
01/04/24 15:24
Electrocardiogram (*1) Urgent
Reason for Study: Chest Pain
EKG- Treatment ONCE
01/04/24 15:36
Cardiac Monitoring- Treatment ONCE
01/04/24 15:41
Complete Blood Count/With Diff Urgent
Comprehensive Metabolic Panel Urgent
01/04/24 16:32
CT Head W/o Iv Contrast Urgent
Comment:
Reason For Exam: dizziness
Metoclopramide [Reglan] 10 mg IV NOW STA
01/04/24 16:50
0.9% Sodium Chloride 500 ml [Nss] 500 ml IV BOLUS
01/04/24 18:41
Ondansetron Injectable [Zofran] 4 mg IV NOW STA
01/04/24 20:47
Acetaminophen [Tylenol] 1,000 mg PO NOW STA
Abnormal Lab Results
01/04/24
15:41
Hct 36.5 L %
(37.0-47.0)
Absolute Monos (auto) 0.7 H 10^3/uL
(0.1-0.6)
Monocytes % 10.2 H %
(1.7-9.3)
Carbon Dioxide 20 L mmol/L
(22-30)
BUN 20 H mg/dl
(7-17)
Glucose 178 H mg/dl
(70-99)
01/04/24 15:41
01/04/24 15:41
Vital Signs
Initial and Last Documented VS:
Initial Vital Signs
Pulse Resp Pulse Ox
66 18 97
01/04/24 15:23 01/04/24 15:23 01/04/24 15:23
Last Documented Vital Signs
Temp Pulse Resp BP Pulse Ox
97.9 F 61 20 131/63 97
01/04/24 15:27 01/04/24 19:00 01/04/24 19:00 01/04/24 19:00 01/04/24 19:00
MDM/Problems Addressed
Differential Diagnosis Includes:
Patient is a 83-year-old woman with history of TIA, reflux presenting to the emergency department with dizziness. Vitals here initially were notable for hypertension though that resolved during my evaluation. Exam is otherwise reassuring.
Differential is broad but could be complex migraine versus posterior CVA versus electrolyte derangement. Could be peripheral vertigo given that there are certain positions currently that are exacerbating the dizziness. Could also be orthostatic
given that it is worse with going from sitting to standing and she has not tolerated p.o. secondary to the vomiting. Could be cardiac such as arrhythmia. Will check blood work EKG and CT scan of her head. Will give additional antiemetics. Will
also treat migraine with Reglan. Will give IV fluids anticipate admission if symptoms ongoing
*Critical Care Note
Total Time (30-74mins, 75-104mins- exclusive of procedures): Not Applicable
Update Note
Update Note:
On reevaluation patient with active vomiting still. Will try different antiemetic.
On reevaluation patient appears much better. She states that Zofran did work. She states that the dizziness has resolved. CT scan was negative. We did discuss the possibility of obtaining an MRI to fully rule out posterior CVA given TIA however
patient is asymptomatic at this time. She would prefer to not be admitted and would follow-up with PCP. On reevaluation patient tolerated p.o. They are requesting discharge which at this time is appropriate given that all symptoms have resolved.
Strict return precautions given. I did prescribe meclizine for the peripheral vertigo episodes.
ED Attending Note
-
Portions of this chart may have been created with voice recognition software.� Occasional wrong word or��sound alike� substitutions may have occurred due to the inherent limitations of voice recognition software.
Discharge Plan
Departure
Patient Disposition: Home (Routine Discharge)
Date of Disposition: 01/04/24
Time of Disposition: 22:03
Patient with high blood pressure during this ER visit?: Yes
Discharge Problem:
Dizziness
Prescriptions:
New
meclizine 12.5 mg tablet
12.5 mg PO TID PRN (Reason: dizziness) Qty: 10 0RF
No Action
atorvastatin 20 mg Tablet
20 mg PO DAILY
omeprazole 40 mg Capsule,Delayed Release(Dr/Ec)
40 mg PO DAILY
escitalopram oxalate 10 mg Tablet
10 mg PO QPM
famotidine 20 mg Tablet
20 mg PO DAILY
trazodone 100 mg Tablet
100 mg PO HS
cyanocobalamin (vitamin B-12) [Vitamin B-12] 1,000 mcg Tablet
1,000 mcg PO DAILY
ascorbic acid (vitamin C) [Vitamin C] 500 mg Tablet
500 mg PO BID
fiber Tablet
1 tab PO DAILY
turmeric
500 mg PO DAILY
mupirocin 2 % ointment
1 applic intranasal BID Qty: 1 0RF
Patient Comments:
applied this am 09/19/23 at 0500
gabapentin 300 mg Tablet
300 mg PO HS
aspirin 325 mg Tablet
325 mg PO DAILY Qty: 30 0RF
Rx Instructions:
Take daily x4 weeks for blood clot prevention.
prochlorperazine maleate 5 mg Tablet
5 mg PO Q8H PRN (Reason: nausea and vomiting) Qty: 30 0RF
docusate sodium 100 mg Capsule
100 mg PO BID Qty: 30 0RF
dexamethasone 4 mg Tablet
4 mg PO BID Qty: 5 0RF
Rx Instructions:
Restart night of discharge and continue twice a day until finished.
Take with food.
oxycodone 5 mg Tablet
5 - 10 mg PO Q6H PRN (Reason: moderate-severe pain) Qty: 30 0RF
Rx Instructions:
1 tab for moderate pain, 2 if severe.
Dx total joint
sennosides [Senna Laxative] 8.6 mg Tablet
17.2 mg PO BID Qty: 30 0RF
acetaminophen [Acetaminophen Extra Strength] 500 mg tablet
1,000 mg PO Q6H Qty: 60 0RF
Rx Instructions:
DO NOT exceed >4000 mg daily.
Eliquis 5 mg tablet
5 mg PO BID Qty: 70 0RF
Rx Instructions:
10 mg BID x 7 days then 5 mg BID
oxycodone 5 mg tablet
5 mg PO Q8H PRN (Reason: Pain) Qty: 10 0RF
Referrals:
UNKNOWN - PT DOES,NOT KNOW [Unknown Provider] -
Interventions
Interventions:
*Risk Screen - Suicide Last Done: 01/04/24 15:27
*General Assessment Last Done: 01/04/24 15:27
*Neglect/Abuse Screening Last Done: 01/04/24 15:27
ED- Fall Risk Assessment Last Done: 01/04/24 15:27
*ED COVID-19 Vaccine History Last Done: 01/04/24 15:27
ED- Neurological Assessment Last Done: 01/04/24 15:37
ED- Cardiac Assessment Last Done: 01/04/24 15:37
ED Swallowing Screen Last Done: 01/04/24 20:33
Discharge Date and Time
Print Language: KOREAN
[2024-01-04] MEDS: REGLAN 10 MG IV (16:42)
--- NOTE | 2024-01-04 16:45 | EDRN ---
Pt remains very dizzy w/ movement, w/ headache, and w/ nausea that is constant w/ intermittent vomiting. Headache remains 10/10 at this time.
[2024-01-04] MEDS: NSS 500 IV (16:50)
--- NOTE | 2024-01-04 18:15 | EDRN ---
Pt took her teeth out for CT scan and is now having return of N/V. Dr. Urias informed at this time.
[2024-01-04] MEDS: ZOFRAN 4 MG IV (18:59)
[2024-01-04] MEDS: TYLENOL 1000 MG PO (20:55)
--- NOTE | 2024-01-04 23:21 | HPS.HSE ---
Family Physician
-
Family Physician: Richard Lemus
Chief Complaint
-
Dizziness with nausea and vomited
History of Present Illness
This is AN 83-year-old female with past medical history significant for GERD, anemia, hyperlipidemia and history of TIA who presents to the emergency department with 2-day history of vaginal symptoms complicated by nausea and vomiting.
Patient reports been in usual state of health up until about 2 days ago when she awoke from bed and noticed that she had a vertigo. The vertigo is worse with movement. Today the patient reports that she had a severe episode of vertigo when she
bent down to do something in the kitchen and then stood up rapidly. She had severe nausea and projectile vomiting that was nonbloody and nonbilious. She reports head fullness/headache. She denies any blurry vision or double vision. She denies
any weakness in her extremities. She denies any numbness or tingling. Patient denies any facial asymmetry, slurred speech or confusion. She denies any urinary symptoms. She denies any recent cough cold or flulike illness.
Patient denies any prior history of dizziness/vertigo.
While in the ED she was initially treated with antiemetics and was feeling well. However when she got up to take some oral medication she had vomiting again and patient was referred for observation.
In the ED she was afebrile blood pressure was normal at 131/60 pulse of 61. ECG showed sinus bradycardia at a rate of 57 which is not significantly changed from prior. CT of the head shows no acute abnormality. CBC was within normal limits.
Chemistry shows no acute abnormalities and within normal limits.
Medical History
Past Medical History
Past Medical History: Reports GERD, HTN and Hypercholesterolemia
Additional Past Medical History:
TIA
Past Surgical History: Reports Orthopedic
Social History
Tobacco: Non-smoker
Alcohol: Occasional
Drug: None
Personal:
Living: With Family
Employment: Retired
Family History
Family History: Not pertinent
Allergies / Home Medications
Allergies reflects when Allergies were last updated in [employer].
Home Medications with original date entered in [employer]
Allergy/Medication List:
Allergies
Allergy/AdvReac Type Severity Reaction Status Date / Time
hydromorphone [From Dilaudid] AdvReac visual Verified 01/04/24 15:26
hallucination
Home Medications
atorvastatin 20 mg tablet 20 mg PO DAILY High Cholesterol 12/05/21
omeprazole 40 mg capsule,delayed release 40 mg PO DAILY Fluid Retention/Swelling 12/05/21
famotidine 20 mg tablet 20 mg PO DAILY Gastrointestinal Issue 08/30/23
Review of Systems
-
History Source: Patient
Constitutional: Reports No Symptoms
EENT: Reports No Symptoms
Respiratory: Reports No Symptoms
Cardiac: Reports No Symptoms
Abdomen/GI: Reports Nausea and Vomiting
: Reports No Symptoms
Musculoskeletal: Reports No Symptoms
Skin: Reports No Symptoms
Neurological: Reports Dizzy
Endocrine: Reports No Symptoms
Hematologic/Lymphatic: Reports No Symptoms
Psych: Reports No Symptoms
Physical Exam
Vital Signs
Vital Signs
Temp Pulse Resp BP Pulse Ox
97.9 F 61 20 131/63 97
01/04/24 15:27 01/04/24 19:00 01/04/24 19:00 01/04/24 19:00 01/04/24 19:00
Physical Exam
General: Well Developed, Well Nourished, No Apparent Distress and Comfortable
HEENT: NormoCephalic, Moist mucous membranes, Atraumatic, PERRLA and Neck Nontender
Respiratory: Clear
Cardiac: S1/S2 and Regular Rhythm
Breast: Deferred by me
GI: Soft, Non Tender, Non Distended and Normal Bowel Sounds
Rectal: Deferred by Provider
Genito-urinary: Deferred by me
Musculoskeletal: No Clubbing, No Cyanosis and No Edema
Skin: Warm
Neuro: AO x 3, No Motor Deficits, Cranial Nerves Intact and No Sensory Deficits
Hematologic/Lymphatic: No Lymphadenopathy
Psych: Calm
Laboratory Results
-
01/04/24 15:41
01/04/24 15:41
Laboratory Results
Total Bilirubin 0.6 mg/dl (0.2-1.3) 01/04/24 15:41
AST 33 U/L (14-36) 01/04/24 15:41
ALT 25 U/L (0-35) 01/04/24 15:41
Alkaline Phosphatase 107 U/L (38-126) 01/04/24 15:41
Data Reviewed
-
CT Scan: Report Reviewed by me
Medical Tests (Nuc Med, Echo, EKG etc): Image Personally Visualized and interpreted
Lab Data: Labs Reviewed by me
Old Records: Reviewed
Impression/Plan
-
IMPRESSION:
Patient presenting with about 2 days of worsening vertigo associated with nausea vomiting and mostly triggered by vertigo movement. She has no focal neurological deficits. CT of the head was unremarkable. Labs are within normal limits. She is
not orthostatic. Headache resolved with metoclopramide
On my examination of the patient she had no nystagmus. She was able to lay down seat stand and walk without vertigo. She had no ataxia. She did not have induced nausea or vomiting. I suspect given acute onset of symptoms exacerbation by movement
and improvement with rest that this is most likely BPPV. She has no focal neurological deficits and no peripheral symptoms to suggest intracerebral process. She is currently without symptoms but may recur paroxysmally. Given age, and being
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
PLAN:
Vertigo - Suspect BPPV. Currently asymptomatic with negative neuro exam, blood test and CT head.
- admit to med surg
- observe overnight, if asymptomatic in am can be discharged
- meclizine 12.5 mg prn
- PT eval in am.
GERD -
continue ppi
DVT PPX - SCDs
Code Status - full code
[2024-01-05] MEDS: PROTONIX 40 MG PO (07:23)
[2024-01-05] MEDS: LIPITOR 20 MG PO (07:23)
[2024-01-05] MEDS: PEPCID 20 MG PO (07:23)
[2024-01-05 07:26] VITALS: BP 132/82
[2024-01-05 09:00] VITALS: BP 151/65; PULSE 90
[2024-01-05 09:15] VITALS: BP 140/72; BP 151/65
--- NOTE | 2024-01-05 09:20 | W.PN.HOSP.TC ---
Today's Communication/Plan
-
Pharmacy to verify the meds. PT Evaluation, MRI today and if all okay can discharge.
Assessment / Plan
Assessment / Plan
83-year-old with dizziness, vertigo. No tinnitus.
CVS: S1-S2 normal
Chest: CTA B/L
Abdomen: Soft, NT / Bowel sounds present
Extremities: No edema, normal pulses
LEGAL DOCUMENT ASSISTANT: No facial droop, no nystagmus
# Vertigo
Continue meclizine for symptoms
H/O CVA- Will get an MRI
PT OT eval
# History of TIA
# Hyperlipidemia-continue statin
# GERD-continue PPI
# Depression-continue Lexapro after verifying
# Arthritis/DJD
# DVT prophylaxis-SCDs
# Full code
Discussed with nursing
Pharmacy to verify the meds. PT Evaluation, MRI today and if all okay can discharge.
Anticipated Discharge: Today
Subjective/Interval History
-
Date of Service: January 05, 2024
Objective Data
-
Vital Signs:
Vital Signs
Temp Pulse Resp BP Pulse Ox
98 F 66 16 132/82 97
01/05/24 07:26 01/05/24 07:26 01/05/24 07:26 01/05/24 07:26 01/05/24 07:26
[2024-01-05] MEDS: ASPIR LOW (ENTERIC COATED) 81 MG PO (10:15)
--- NOTE | 2024-01-05 10:59 | CM ---
CM reviewed chart. CM introduced self and role. Patient's daughter also at bedside. Patient lives with spouse. She has several family memebers for suppor. She is retired. She has no +SDOHs. She is independent, drives, owns no DME. She has 2 steps to
enter into her single home. Her daughter or will provide transportation once she is discharged.
SAMS form:
CM explained what observation status is and also went over SAMS form. Patient verbalized understanding and agreeable to sign. Copy given to patient. Original filed.
--- NOTE | 2024-01-05 14:09 | W.PN.UPDATE ---
Addendum entered and electronically signed by Jennifer Rivero MD 01/06/24 17:34:
Dictation- [id number]
Addendum entered and electronically signed by Jennifer Rivero MD 01/05/24 14:18:
no nausea or vomiting. 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
Original Note:
Update Note
Progress Note Update
Pt recommended home PT
MRI no CVA.
Likely peripheral vertigo
Symptoms improved
Will discharge patient
[2024-01-05 14:29] VITALS: BP 132/69
--- NOTE | 2024-01-05 14:42 | CM ---
CM consult placed for [facility]. Patient is agreeable and chose [facility]. Attending physician made aware.
--- NOTE | 2024-01-06 17:33 | W.DS.TRANS ---
DC Summary - Screen Making Technician
-
Discharge Instructions:
Discharge Diagnosis/Procedures vertigo
High cholesterol
GERD
Diet As tolerated
Driving Restrictions Do not drive until your symptoms are completely
go
Other Services VN,PT
Instructions:
Stand-Alone Forms:
Changes to Home Medications: No
Discharge Medications:
DC Medications w/original date entered in [employer]
atorvastatin 20 mg tablet 20 mg PO DAILY High Cholesterol 12/05/21
ascorbic acid (vitamin C) 500 mg tablet (Vitamin C) 500 mg PO BID Supplement 08/30/23
famotidine 20 mg tablet 20 mg PO DAILY Gastrointestinal Issue 08/30/23
trazodone 100 mg tablet 100 mg PO HSPRN PRN sleep 08/30/23
acetaminophen 325 mg tablet (Tylenol) 650 mg PO Q4HPRN PRN mild pain 01/05/24
aspirin 81 mg tablet,delayed release 81 mg PO DAILY Blood clot prevention/tx #0 tabs 01/05/24
gabapentin 300 mg capsule 300 mg PO HS pain 01/05/24
omeprazole 40 mg capsule,delayed release 40 mg PO DAILY Gastrointestinal Issue 01/05/24
Home Medication Changes
Pending Results: No
== END 2024-01-05 14:42 | disposition home health service (06) ==
LOC: ED 23:33
PROVIDERS: Emergency Medicine; ADMITTING PHYSICIAN Internal Medicine; ATTENDING PHYSICIAN Hospitalist; EMERGENCY PHYSICIAN Student in an Organized Health Care Education/Training Program; FAMILY PHYSICIAN Family Medicine
DX: R42 Dizziness and giddiness (principal); R11.12 Projectile vomiting; R51.9 Headache, unspecified; K21.9 Gastro-esophageal reflux disease without esophagitis; R11.2 Nausea with vomiting, unspecified; E78.00 Pure hypercholesterolemia, unspecified; I67.82 Cerebral ischemia; G31.9 Degenerative disease of nervous system, unspecified; F32.A Depression, unspecified; M19.90 Unspecified osteoarthritis, unspecified site; R00.1 Bradycardia, unspecified; I10 Essential (primary) hypertension; Z86.73 Personal history of transient ischemic attack (TIA), and cerebral infarction without residual deficits; Z96.652 Presence of left artificial knee joint; Z88.5 Allergy status to narcotic agent; Z63.6 Dependent relative needing care at home
CPT/HCPCS: 70450; 70551; 80053; 85025; 93005; 96361; 96374; 96375; 96376; 97116; 97163; 97165; 99285; G0378

== ENCOUNTER 2024-01-10 03:38 | Observation (INO) | payer OTHER, SELFPAY ==
[2024-01-09 19:53] VITALS: BP 89/72
[2024-01-09 21:49] VITALS: BMI 24.1
[2024-01-09 21:51] VITALS: BP 151/73
[2024-01-09 22:00] VITALS: BP 134/83
--- NOTE | 2024-01-09 22:07 | ED.GENMED ---
History of Present Illness
<FARA Faustin - Last Filed: 01/10/24 06:33>
General
Chief Complaint: Weakness
Source: patient and significant other (daughter)
Time Seen by Provider: 01/09/24 22:07
History of Present Illness
History of Present Illness:
An 83 yo female with a PMH of stroke, HLD, osteoarthritis, GERD, presents to the ED for Dizziness x 6 days. She characterizes the dizziness as a spinning sensation that is provoked by any position or eye movement changes. She has been taking Zofran,
Antivert since her admission on 01/03/2024 for the same symptoms with the addition of a scopolamine patch today, all of which have not helped her symptoms. Her primary doctor then requested that she be tested for Covid-19 and has since tested
POSITIVE. She also describes nausea, vomiting, and abdominal cramps that has persisted since her discharge from the hospital on 01/04/2024. The states that there has been no blood in her vomit, but that says she is only dry heaving at this point
because she hasn't been able to tolerate PO fluid or food. She has had a severe LAINEZ x 4 days which was also present during her initial admission and continues today. She complains of new 'ear crackling' sensation today which began this morning, but
has since gone away this afternoon. During her previous admission on 01/03/2024, she received a CT and MRI which demonstrated no acute cerebral abnormalities. She denies any cough, sinus pressure, rhinorrhea, diarrhea, or constipation.
Past History
<FARA Faustin - Last Filed: 01/10/24 06:33>
Past History
ED Past Medical History: CVA (TIA), GERD and Hypercholesterolemia
ED Past Surgical History: Gynecological and Orthopedic (Left knee replacement 2021, left total hip replacement 09/18/2023)
Social History
Tobacco: Non-smoker
Alcohol: None
Drug: None
Personal:
Living: with family
Employment: Retired
Family History
Family History: Other (Noncontributory)
Review of Systems
<FARA Faustin - Last Filed: 01/10/24 06:33>
Review of Systems
Constitutional: Denies fever or chills
EENT: Reports other (ear pressure/ 'crackles' ); Denies sore throat or runny nose
Respiratory: Denies cough
ABD/GI: Reports abdominal pain, nausea and vomiting; Denies diarrhea or constipated
Musculoskeletal: Denies joint pain or muscle pain
Skin: Reports no symptoms
Neurological: Reports no symptoms
Phy Exam
<FARA Faustin - Last Filed: 01/10/24 06:33>
General Physical Exam
General Presentation: no apparent distress and other (Appears tired )
General age: appears stated age
General Skin: warm, dry and other (intact)
General Habitus: normal and elderly
General Mental: alert
General Hydration: dry mucous membranes (dry mouth and tongue )
ENT Exam
ENT Exam: EOMI and TM's abnormal (Milky white fluid noted behind L TM)
Eye Exam
Eye Exam: PERRL and EOMI
Eye Exam General: PERRL: bilateral and EOM intact: bilateral
Cardiovascular Exam
Cardiovascular Exam: regular rate/rhythm, no gallop, no murmur and normal peripheral pulses
Pulmonary Exam
Pulmonary Exam: lungs clear, no respiratory distress, no rales, no crackles, no rhonchi and no cough
Gastrointestinal Exam
Gastrointestinal Exam: normal bowel sounds, non tender, soft, no organomegaly and non distended
Neurological Exam
Neurological Exam: alert and oriented x3
Skin Exam
Skin Exam: normal color, warm/dry and no rash
Course
<FARA Faustin - Last Filed: 01/10/24 06:33>
Orders/Labs/Results
Orders:
Orders
01/09/24 21:59
Complete Blood Count/With Diff Urgent
01/09/24 22:00
Comprehensive Metabolic Panel Urgent
Lipase Urgent
01/09/24 23:13
0.9% Sodium Chloride 1000 ml [Nss] 1,000 ml IV BOLUS
diazePAM [Valium Injection] 2 mg IV NOW STA
01/09/24 23:27
COVID-19 Antigen Urgent
Source: Nasal Swab
01/10/24 02:01
Admit/Transfer Patient As Directed
Co-Sign Provider:
Level of Care: Observation services
Assign to:: Medical/Surgical
Physician / Group: hospitalist
Diagnosis: vertigo
Code Status As Directed
Resuscitation Status: Full Code
PRN Pain Medication Management As Directed
May give lesser potent ordered pain med per pt: Yes
preference::
Protocol:: Medication orders for pain may be administered in a
manner that supports deferring to patient preference
when the pt is:
- Requesting an ordered lesser potent pain medication.
Least to most potent pain medications are defined
as: acetaminophen < NSAID < tramadol < opioids
(morphine, oxycodone, hydromorphone).
- Requesting a lesser dose of the same medication IF
ORDERED.
- Requesting a less intrusive route of administration
if both routes are prescribed by the provider (PO <
IV).
01/10/24 03:41
Acetaminophen [Tylenol] 650 mg PO Q4HPRN PRN
Bisacodyl [Dulcolax] 10 mg RECTAL [id number] PRN
Diazepam [Valium] 2 mg PO TIDPRN PRN
Docusate W/Senna [Senokot-S] 1 tablet PO BIDPRN PRN
Lactated Ringers [Lr] 1,000 ml IV 100 mls/hr
Polyethylene Glycol Powder [Miralax] 17 grams PO DAILYPRN PRN
Prochlorperazine [Compazine] 10 mg IV Q6HPRN PRN
01/10/24 03:41
Consult Notification Routine
Specialty to Notify: Neurology
NEUROLOGY CONSULT Routine
Consulting Provider: Chaka Gaston
Was physician already notified: No
Reason for consult: intractable vertigo
Activity As Directed
Activity Level: With Assistance
Vital Signs As Directed
Frequency: Per unit guidelines
DX Deep Vein Thrombosis Video Routine
01/10/24 04:19
Basic Metabolic Panel IN AM
01/10/24 Breakfast
Clear Liquid
At Your Request: Full Participation
01/10/24 08:00
Aspirin Low Dose EC [Aspir Low (Enteric Coated)] 81 mg PO DAILY
Atorvastatin [Lipitor] 20 mg PO DAILY
omeprazole 40 mg PO DAILY
01/10/24 18:00
Enoxaparin Sodium [Lovenox] 40 mg SC QPM
Abnormal Lab Results
01/09/24 01/09/24
21:59 22:00
Absolute Lymphs (auto) 0.7 L 10^3/uL
(1.2-3.4)
Neutrophils % 82.8 H %
(42.2-75.2)
Lymphocytes % 9.0 L %
(20.5-51.1)
BUN 23 H mg/dl
(7-17)
Glucose 120 H mg/dl
(70-99)
01/09/24 21:59
01/09/24 22:00
Vital Signs
Initial and Last Documented VS:
Initial Vital Signs
Temp Pulse Resp BP Pulse Ox
97.6 F 87 16 89/72 97
01/09/24 19:53 01/09/24 19:53 01/09/24 19:53 01/09/24 19:53 01/09/24 19:53
Last Documented Vital Signs
Temp Pulse Resp BP Pulse Ox
98.2 F 44 15 116/45 97
01/09/24 21:51 01/10/24 05:30 01/10/24 05:30 01/10/24 05:00 01/10/24 05:30
<Virginia Bearedn, - Last Filed: 01/10/24 00:08>
Orders/Labs/Results
Orders:
Orders
01/09/24 21:59
Complete Blood Count/With Diff Urgent
01/09/24 22:00
Comprehensive Metabolic Panel Urgent
Lipase Urgent
01/09/24 23:13
0.9% Sodium Chloride 1000 ml [Nss] 1,000 ml IV BOLUS
diazePAM [Valium Injection] 2 mg IV NOW STA
01/09/24 23:27
COVID-19 Antigen Urgent
Source: Nasal Swab
01/10/24 02:01
Admit/Transfer Patient As Directed
Co-Sign Provider:
Level of Care: Observation services
Assign to:: Medical/Surgical
Physician / Group: hospitalist
Diagnosis: vertigo
Code Status As Directed
Resuscitation Status: Full Code
PRN Pain Medication Management As Directed
May give lesser potent ordered pain med per pt: Yes
preference::
Protocol:: Medication orders for pain may be administered in a
manner that supports deferring to patient preference
when the pt is:
- Requesting an ordered lesser potent pain medication.
Least to most potent pain medications are defined
as: acetaminophen < NSAID < tramadol < opioids
(morphine, oxycodone, hydromorphone).
- Requesting a lesser dose of the same medication IF
ORDERED.
- Requesting a less intrusive route of administration
if both routes are prescribed by the provider (PO <
IV).
01/10/24 03:41
Acetaminophen [Tylenol] 650 mg PO Q4HPRN PRN
Bisacodyl [Dulcolax] 10 mg RECTAL [id number] PRN
Diazepam [Valium] 2 mg PO TIDPRN PRN
Docusate W/Senna [Senokot-S] 1 tablet PO BIDPRN PRN
Lactated Ringers [Lr] 1,000 ml IV 100 mls/hr
Polyethylene Glycol Powder [Miralax] 17 grams PO DAILYPRN PRN
Prochlorperazine [Compazine] 10 mg IV Q6HPRN PRN
01/10/24 03:41
Consult Notification Routine
Specialty to Notify: Neurology
NEUROLOGY CONSULT Routine
Consulting Provider: Chaka Gaston
Was physician already notified: No
Reason for consult: intractable vertigo
Activity As Directed
Activity Level: With Assistance
Vital Signs As Directed
Frequency: Per unit guidelines
DX Deep Vein Thrombosis Video Routine
01/10/24 04:19
Basic Metabolic Panel IN AM
01/10/24 Breakfast
Clear Liquid
At Your Request: Full Participation
01/10/24 08:00
Aspirin Low Dose EC [Aspir Low (Enteric Coated)] 81 mg PO DAILY
Atorvastatin [Lipitor] 20 mg PO DAILY
omeprazole 40 mg PO DAILY
01/10/24 18:00
Enoxaparin Sodium [Lovenox] 40 mg SC QPM
Abnormal Lab Results
01/09/24 01/09/24
21:59 22:00
Absolute Lymphs (auto) 0.7 L 10^3/uL
(1.2-3.4)
Neutrophils % 82.8 H %
(42.2-75.2)
Lymphocytes % 9.0 L %
(20.5-51.1)
BUN 23 H mg/dl
(7-17)
Glucose 120 H mg/dl
(70-99)
01/09/24 21:59
01/09/24 22:00
Vital Signs
Initial and Last Documented VS:
Initial Vital Signs
Temp Pulse Resp BP Pulse Ox
97.6 F 87 16 89/72 97
01/09/24 19:53 01/09/24 19:53 01/09/24 19:53 01/09/24 19:53 01/09/24 19:53
Last Documented Vital Signs
Temp Pulse Resp BP Pulse Ox
98.2 F 44 15 116/45 97
01/09/24 21:51 01/10/24 05:30 01/10/24 05:30 01/10/24 05:00 01/10/24 05:30
<FAAR Faustin - Last Filed: 01/10/24 06:33>
MDM/Problems Addressed
Differential Diagnosis Includes:
Covid induced Vertigo, Cerebellar CVA, BPPV
Chronic conditions affecting care: Other
<FARA Faustin - Last Filed: 01/10/24 06:33>
*Critical Care Note
Total Time (30-74mins, 75-104mins- exclusive of procedures): Not Applicable
<Virginia Bearden DO - Last Filed: 01/10/24 00:08>
*Pulse Oximetry
Patient hypoxic: no
*Respiratory Therapy Manager Interpretation
Rate: normal
Interpretation: normal
Rhythm: sinus
<FARA Faustin - Last Filed: 01/10/24 06:33>
Update Note
Update Note:
time: 0631 : 01/10/24: patient was sleeping upon entering. Conversed with the patient. She appears to be improving and admits that her dizziness has improved throughout the night.
ED Attending Note
<FARA Faustin - Last Filed: 01/10/24 06:33>
-
Portions of this chart may have been created with voice recognition software.� Occasional wrong word or��sound alike� substitutions may have occurred due to the inherent limitations of voice recognition software.
<Virginia Bearden DO - Last Filed: 01/10/24 00:08>
ED Attending Note
Patient seen and examined by attending physician: Yes
I performed the substantive portion of visit, reviewed & personally made and approve the management plan that is documented in note by myself or LB.: Yes
ED Attending Note:
This is an 83-year-old woman with history of GERD, anemia, hyperlipidemia, osteoarthritis and prior history of TIA approximately 15 years ago and at that time TIA symptoms notable for acute onset of dizziness.
She presents with persistent dizziness, nausea and vomiting that began somewhat abruptly January 02 and was hospitalized overnight January 03 to January 04 for evaluation of intractable positional dizziness, nausea and vomiting. Unremarkable CT of
the head as well as unremarkable MRI of the brain January 04. Evaluated by physical therapy and overall was feeling improved the following day and was discharged to home on the . Symptoms have persisted since that time, unrelieved with 3 times
daily meclizine, unrelieved with oral ondansetron which she has been taking 3-4 times per day. She did call her primary care physician today due to ongoing symptoms and was prescribed scopolamine patch which thus far has not improved her symptoms
and due to persistent symptoms of dizziness, nausea, headache she was recommended to do a home COVID test which returned positive. She has not had a cough, she denies nasal congestion but has had some crackling in her left ear earlier today. She
denies ear pain.
She has had minimal oral intake over the past 6 days. She has been attempting to keep up with her fluids and has been urinating throughout the day, admits to mildly decreased urination.
GENERAL: 83-year-old woman appears her stated age, awake and alert, appears in mild distress, preferentially lying on her left side, pulled her eyes closed. Abrupt return of vertiginous symptoms with opening her eyes especially with movement of her
eyes or movement of her head. This is accompanied with abrupt nausea and dry heaves.
EYE: pupils equal and reactive. Mild bilateral lateral nystagmus. Test of skew is negative. Head impulse equivocal. Anicteric
NECK: Supple, nontender, no meningismus, no significant adenopathy. No JVD.
ENT: posterior pharynx is clear, oral mucosa is mildly dry. There is a moderate cloudy/white effusion behind the left TM. Right TM is clear. Moderately boggy turbinates with scant whitish mucus bilateral nares.
CARDIAC: Regular rate and rhythm. no murmur.
LUNGS: Clear breath sounds bilaterally, no acute respiratory distress, no wheezes/rales/rhonchi
ABDOMEN: Soft, nondistended, without focal tenderness, normoactive BS.
NEUROLOGICAL: Alert and oriented x3, no focal weakness. Abrupt return of vertiginous symptoms with repositioning especially with movement of her eyes, rotation of head.
SKIN: Warm and dry, normal color, skin intact. No rash.
MUSCULOSKELETAL: No C/C/E. peripheral pulses are full and equal b/l. No palpable tenderness.
PSYCH: Normal and appropriate interaction.
Concern for COVID-19 related vertigo, concern for intractable peripheral vertigo versus there is still some concern for persistent vertebrobasilar insufficiency.
Thus far no improvement with meclizine, Zofran, scopolamine patch.
Labs remarkable for mild prerenal azotemia and clinically patient appears dry and initial blood pressure moderately hypotensive.
Will initiate IV fluids and will trial an IV dose of Valium.
Will recheck COVID for completeness sake.
Due to persistent severe symptoms, poor oral intake, significant risk of falls, risk of acute kidney injury/worsening dehydration as well as concern for vertebrobasilar insufficiency patient will require acute hospitalization.
Discharge Plan
Departure
Patient Disposition: Admit
Date of Disposition: 01/10/24
Time of Disposition: 00:06
Admit to: Med/Surg
Admit to doctor: [facility]
Presentation/result/management discussed w/ accepting MD/DO: Hospitalist
Condition: Fair
Discharge Problem:
severe intractable vertigo, Intractable nausea and vomiting, SARS-CoV-2 positive
Interventions
Interventions:
*Risk Screen - Suicide Last Done: 01/09/24 19:53
*General Assessment Last Done: 01/09/24 21:51
*Neglect/Abuse Screening Last Done: 01/09/24 19:53
*ED COVID-19 Vaccine History Last Done: 01/10/24 01:14
ED- Cardiac Assessment Last Done: 01/09/24 21:50
ED- Neurological Assessment Last Done: 01/09/24 21:50
ED- Pulmonary Assessment Last Done: 01/09/24 21:50
[2024-01-09 22:10] LABS: % Basophils 0.1 % (0-2); % Eosinophils 0.3 % (0-6); % Immature Granulocytes 0.3 % (0-0.5); % Monocytes 7.5 % (1.7-9.3); % Neutrophils 82.8 % (42.2-75.2); Absolute Lymphocytes 0.7 10^3/uL (1.2-3.4); Absolute Monocytes 0.5 10^3/uL (0.1-0.6); Hematocrit 37.2 % (37.0-47.0); Hemoglobin 12.8 g/dL (12.0-16.0); Mean Corp Hgb Conc. 34.4 g/dL (33.0-37.0); Mean Corpuscular Hgb 30.5 pg (27.0-31.0); Mean Corpuscular Volume 88.6 fL (81.0-99.0); Mean Platelet Volume 9.3 fL (7.4-10.4); Nucleated Red Blood Cells % 0 %; Platelet Count 188 10^3/uL (130-400); Red Cell Dist. Width 12.4 % (11.5-14.5); White Blood Cell Count 7.2 10^3/uL (4.8-10.8)
[2024-01-09 22:31] LABS: ALT (SGPT) 26 U/L (0-35); AST (SGOT) 27 U/L (14-36); Albumin 4.4 g/dl (3.5-5.0); Alkaline Phosphatase 77 U/L (38-126); Blood Urea Nitrogen 23 mg/dl (7-17); Calcium 10.2 mg/dl (8.4-10.2); Carbon Dioxide 25 mmol/L (22-30); Chloride 102 mmol/L (98-107); Estimated Creatinine Clearance 40 ml/min; Glucose 120 mg/dl (70-99); Lipase 26 U/L (23-300); Potassium 4.2 mmol/L (3.5-5.1); Sodium 138 mmol/L (135-145); Total Bilirubin 1.1 mg/dl (0.2-1.3); Total Protein 6.6 g/dl (6.3-8.2); eGFR > 60.00
[2024-01-09 23:01] VITALS: BP 153/67
[2024-01-09] MEDS: VALIUM INJECTION 2 MG IV (23:23)
[2024-01-09] MEDS: NSS 1000 IV (23:26)
[2024-01-10] VITALS (16 sets, daily range): BP systolic 113–160; BP diastolic 44–103; PULSE 80; BMI 23.1
[2024-01-10 00:29] LABS: COVID-19 Antigen Negative (Negative)
--- NOTE | 2024-01-10 01:38 | HPS.HSE ---
Family Physician
-
Family Physician: Richard Lemus
Chief Complaint
-
dizziness and weakness
History of Present Illness
Patient is a 83-year-old female with history of GERD, anemia, hyperlipidemia, TIA presents to the emergency department with ongoing nausea, vertigo and weakness starting about 1 week ago.
Patient initially presented to the emergency department on January 03 for dizziness and was found to have vertigo. She had a workup which included an MRI that was negative. Symptoms improved the following day with meclizine and patient was able to
go home. She did have PT and she was cleared for home. Patient reported that almost immediately after she got home she continued to have the symptoms again. She was unable to tolerate p.o. and the meclizine's were not helping. She reported that
this time the dizziness is constant. Anytime she opens her eyes she has double vision she feels the room is spinning and develops nausea with minimal air movement. She also reports some left ear fullness and popping but no difference in hearing.
She saw her PMD today due to symptoms and scopolamine patch was prescribed. This does not resolve her symptoms. She was asked to take a COVID test which was positive at home and patient was referred to the emergency department.
In the emergency department the patient was afebrile, initial BP was 89 systolic, now with a blood pressure of 134/80 pulse was low at 53. She was afebrile. The COVID test was negative. CBC and BMP were within normal limits.
Medical History
Past Medical History
Past Medical History: Reports CVA (TIA), HTN and Hypercholesterolemia
Past Surgical History: Reports Orthopedic
Social History
Tobacco: Non-smoker
Alcohol: Occasional
Drug: None
Personal:
Living: With Family
Employment: Retired
Family History
Family History: Not pertinent
Allergies / Home Medications
Allergies reflects when Allergies were last updated in [facility].
Home Medications with original date entered in [facility]
Allergy/Medication List:
Allergies
Allergy/AdvReac Type Severity Reaction Status Date / Time
hydromorphone [From Dilaudid] AdvReac visual Verified 01/09/24 19:56
hallucination
Home Medications
atorvastatin 20 mg tablet 20 mg PO DAILY High Cholesterol 12/05/21
famotidine 20 mg tablet 20 mg PO DAILY Gastrointestinal Issue 08/30/23
omeprazole 40 mg capsule,delayed release 40 mg PO DAILY Gastrointestinal Issue 01/05/24
Review of Systems
-
History Source: Patient
Constitutional: Reports Fatigue
EENT: Reports No Symptoms
Respiratory: Reports No Symptoms
Cardiac: Reports No Symptoms
Abdomen/GI: Reports Nausea and Vomiting
: Reports No Symptoms
Musculoskeletal: Reports No Symptoms
Skin: Reports No Symptoms
Neurological: Reports No Symptoms
Endocrine: Reports No Symptoms
Hematologic/Lymphatic: Reports No Symptoms
Psych: Reports No Symptoms
Physical Exam
Vital Signs
Vital Signs
Temp Pulse Resp BP Pulse Ox
98.2 F 53 18 134/83 99
01/09/24 21:51 01/09/24 22:30 01/09/24 21:51 01/09/24 22:00 01/09/24 22:30
Physical Exam
General: Well Developed, Well Nourished and Conversant
HEENT: NormoCephalic, Anicteric, Atraumatic and PERRLA
Respiratory: Clear
Cardiac: S1/S2 and Bradycardia
Breast: Deferred by me
GI: Soft, Non Tender and Non Distended
Rectal: Deferred by Provider
Genito-urinary: Deferred by me
Musculoskeletal: No Clubbing, No Cyanosis and No Edema
Skin: Warm
Neuro: AO x 3
Hematologic/Lymphatic: No Lymphadenopathy
Psych: Calm
Laboratory Results
-
01/09/24 21:59
01/09/24 22:00
Laboratory Results
Total Bilirubin 1.1 mg/dl (0.2-1.3) 01/09/24 22:00
AST 27 U/L (14-36) 01/09/24 22:00
ALT 26 U/L (0-35) 01/09/24 22:00
Alkaline Phosphatase 77 U/L (38-126) 01/09/24 22:00
Lipase 26 U/L (23-300) 01/09/24 22:00
Data Reviewed
-
Lab Data: Labs Reviewed by me
Old Records: Reviewed
Impression/Plan
-
IMPRESSION:
Patient here with persistent vertigo and nausea. She. More ill than the last time I saw her 1 week ago. She appears weak, dehydrated and exhausted. She has no focal neurological deficits. She is overall comfortable could not elicit any
nystagmus. Status post 2 mg of Valium in the ED and she currently appears sleepy but easily arousable alert and oriented. Labs are unremarkable. When she was seen 1 week ago she had intermittent episodes of vertigo and was well overnight prior to
being discharged. Had PT. MRI was negative. She has recently tried scopolamine patch well without much improvement due to inability to tolerate p.o. Still denies any hearing loss or tinnitus. COVID negative.
PLAN:
Vertigo - Initially suspect BPPV 1 week ago. Still likely but cannot rule out vestibular neuritis. MRI DWI w/o contrast did not show any ischemic abnormalities. Dedicated images through the internal auditory canal and temporal bones show no mass
in the cerebellopontine angle cisterns or internal auditory canals. There is no abnormal signal in the membranous labyrinths or tympanic cavities. Inner ear structures show normal and symmetrical morphology and are fluid filled.
- admit to med surg
- observe overnight,
- supportive care with parenteral prochlorperazine and oral valium as tolerated
- continue iv fluids and antiemetics
- neurology consultation. Possibly that MRI w/ DWI done > 72 hours after 1st negative MRI can diagnose small CVA that was initially missed. If negtive
- PT eval in am.
GERD -
continue ppi
DVT PPX - SCDs
Code Status - full code
[2024-01-10] MEDS: LR 1000 IV ×3 (04:09→20:24)
[2024-01-10 05:03] LABS: Blood Urea Nitrogen 21 mg/dl (7-17); Calcium 9.2 mg/dl (8.4-10.2); Carbon Dioxide 24 mmol/L (22-30); Chloride 106 mmol/L (98-107); Estimated Creatinine Clearance 45 ml/min; Glucose 98 mg/dl (70-99); Potassium 3.9 mmol/L (3.5-5.1); Sodium 141 mmol/L (135-145); eGFR > 60.00
[2024-01-10] MEDS: ASPIR LOW (ENTERIC COATED) 81 MG PO (08:08)
[2024-01-10] MEDS: LIPITOR 20 MG PO (08:08)
[2024-01-10] MEDS: VALIUM 2 MG PO ×2 (08:09→17:35)
--- NOTE | 2024-01-10 09:13 | VNURNOTE ---
Chart reviewed.� Patient is current with [facility] nursing.� Will continue to follow hospital course and DC plans.
--- NOTE | 2024-01-10 09:18 | CON.NEURO4 ---
Documented by User: Tiffany Ryder NP 01/10/24 11:47
Consultation - Neurology 4
-
CONSULTING PHYSICIAN: Chaka Gaston MD
REFERRING PHYSICIAN: Hospitalists/Dr. Londono
DICTATED BY: KADE Beckman
DATE/TIME OF REQUEST: 01/10/24
DATE/TIME OF CONSULTATION: 01/10/24
Reason for Consultation: Vertigo
History of Present Illness:
This is an 83-year-old right-handed female who has presented to the hospital with report of vertigo starting on 01/03/24. Patient reports that on 01/03/24 she started to feel off-balance while walking, which quickly progressed to severe dizziness
which she describes as initially her body was moving, but has turned into the room is moving around her. This sensation has been constant but is worse with any type of movement or eye opening. She endorses severe nausea when she opens her eyes or
moves and has been vomiting several times per day for the past week. She also notes an intractable headache in the center of her head that she describes as a dull ache, it is associated with photo/phonophobia and started around the same time her
dizziness started.
She was evaluated at from 01/03-01/05/24 and had an MRI brain that was unremarkable. 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
symptoms have progressed since then. She was supposed to undergo outpatient PT but had yet to be able to schedule an appointment.
She denies any recent fever, cold symptoms, or illness. She took an at-home COVID test yesterday and reports it was positive, but repeat testing here is negative. She does note that she has felt like her hearing has been progressively getting
worse. She had a hearing test one month ago and reports the results were normal. Yesterday, she notes that she had a crackling sensation in her left ear but she denies any tinnitus or full sensation. She denies any previous history of headaches or
migraines but notes that her daughter and multiple grandchildren have severe migraines. She notes one episode of vertigo about 25 years ago but reports it was much shorter lasting and her symptoms were less severe. She was told at that time that it
was either a TIA or vertigo, she notes that she has never been told she has had a stroke based on head imaging in the past. She is not taking any antiplatelet medications. She denies any vision changes, speech/swallow difficulty, numbness, weakness,
chest pain, palpitations, and shortness of breath.
Past Medical History: Vertigo vs TIA 25 years ago, HLD, GERD, gastritis, depression, benign breast neoplasm
Surgical History: L TKR, L THR, benign breast mass biopsy
Family History: Daughter and multiple grandchildren with migraines.
Social History: Denies tobacco, alcohol, and illicit drug use.
Allergies: Hydromorphone.
Home Medications: See below.
Review of Symptoms:
Patient denies any fever, chest pain, shortness of breath, or symptoms.
�Per the HPI.�All systems are reviewed negative except above.
Physical Exam:
The patient is afebrile, abdomen is nondistended, breathing is unlabored, skin is warm and dry, no edema.
Neurologic Examination:
The patient is awake, alert and oriented x 3. He is able to follow commands and answer questions appropriately. There is no aphasia or dysarthria. On cranial nerve assessment, pupils are 3 mm bilateral, round and reactive to light and
accommodation. Visual hernandez are full. Extraocular movements are intact. +Nystagmus with right and upward gaze. Facial sensations are intact and bilaterally symmetrical, there is no facial asymmetry. Hearing is intact bilaterally to normal
conversation volume. Tongue palate and uvula are midline. Sternocleidomastoid strengths are full bilaterally. Motor strengths are 5/5 bilateral upper and lower extremities on medical research [place] scale. There is no drift or involuntary movement
noted. Deep tendon reflexes are 2+ bilateral upper and lower extremities and Babinski is absent bilaterally. Sensations of touch, temperature and vibration are intact and bilaterally symmetrical. There was no extinction noted on double simultaneous
stimulation. Coordination is intact by finger to nose bilaterally. CINDY gait, patient too symptomatic with movement.
Lab Results: See below.
Neuro Imaging:
1. MRI Brain 01/05/24: No acute intracranial abnormality noted. Mild atrophy with sequelae of mild small vessel ischemic disease.
Differentials for the patient's presentation include:
1. Vertigo syndrome; possibly vestibular neuritis given nystagmus noted with R gaze, vs vestibular migraine.
2. MRI brain negative for stroke, symptom duration too long to be TIA.
Patient has the following risk factors for their symptoms: hx vertigo once before, family history of migraines
Recommendations:
-Provide prochlorperazine 10mg IV now for migraine, continue this q6hrs PRN.
-Continue IVF and supportive care per primary team. Can continue PRN meclizine 25mg for comfort but patient reports this has not helped.
-Physical therapy evaluation.
-DVT prophylaxis.
Discussed patient care with: Dr. Gaston, the patient
Vital Signs and Labs
-
Vital Signs and Labs:
Vital Signs
Temp Pulse Resp BP Pulse Ox
98.0 F 51 12 139/64 95
01/10/24 09:02 01/10/24 09:02 01/10/24 09:02 01/10/24 09:02 01/10/24 10:29
Lab Results
01/09/24 21:59
01/10/24 04:19
Sodium 141 mmol/L (135-145) 01/10/24 04:19
Potassium 3.9 mmol/L (3.5-5.1) 01/10/24 04:19
BUN 21 mg/dl (7-17) H 01/10/24 04:19
Glucose 98 mg/dl (70-99) 01/10/24 04:19
Calcium 9.2 mg/dl (8.4-10.2) 01/10/24 04:19
Medications
-
Active Medications
Generic Name Dose Route Start Last Admin
Trade Name Freq PRN Reason Stop Dose Admin
Acetaminophen 650 mg 01/10/24 03:41
Acetaminophen 325 Mg Tablet PO 02/07/24 03:40
Q4HPRN PRN
mild pain/LAINEZ/temp> 100.4F
Aspirin 81 mg 01/10/24 08:00 01/10/24 08:08
Aspirin 81 Mg (Enteric Coated) Tablet PO 02/07/24 07:59 81 mg
DAILY CLARISSA Administration
Atorvastatin Calcium 20 mg 01/10/24 08:00 01/10/24 08:08
Atorvastatin (Lipitor) 20 Mg Tablet PO 02/07/24 07:59 20 mg
DAILY CLARISSA Administration
Bisacodyl 10 mg 01/10/24 03:41
Bisacodyl 10 Mg Rectal Suppository RECTAL 02/07/24 03:40
[id number] PRN
constipation
Diazepam 2 mg 01/10/24 03:41 01/10/24 08:09
Diazepam 2 Mg Tablet PO 02/07/24 03:40 2 mg
TIDPRN PRN Administration
vertigo
Enoxaparin Sodium 40 mg 01/10/24 18:00
Enoxaparin Sodium 40 Mg/0.4 Ml Syringe SC 02/07/24 17:59
QPM CLARISSA
Lactated Ringer's 1,000 mls @ 100 mls/hr 01/10/24 03:41 01/10/24 04:09
Lr IV 1,000 mls
.Q10H CLARISSA Administration
Polyethylene Glycol 17 grams 01/10/24 03:41
Polyethylene Glycol Powder 17 Grams Packet PO 02/07/24 03:40
DAILYPRN PRN
constipation
Prochlorperazine Edisylate 10 mg 01/10/24 03:41 01/10/24 09:59
Prochlorperazine 10 Mg/2 Ml Vial IV 02/07/24 03:40 10 mg
Q6HPRN PRN Administration
nausea or vomiting
Senna/Docusate Sodium 1 tablet 01/10/24 03:41
Docusate W/Senna (Laura-Colace) Tablet PO 02/07/24 03:40
BIDPRN PRN
constipation
Home Medications
�Medication �Instructions �Recorded
atorvastatin 20 mg tablet 20 mg PO DAILY High Cholesterol 12/05/21
ascorbic acid (vitamin C) 500 mg 1,000 mg PO DAILY Supplement 08/30/23
tablet (Vitamin C)
famotidine 20 mg tablet 20 mg PO BID Gastrointestinal Issue 08/30/23
trazodone 100 mg tablet 100 mg PO HSPRN PRN sleep 08/30/23
acetaminophen 325 mg tablet 650 mg PO Q4HPRN PRN mild pain 01/05/24
(Tylenol)
gabapentin 300 mg capsule 300 mg PO HS pain 01/05/24
omeprazole 40 mg capsule,delayed 40 mg PO DAILY Gastrointestinal 01/05/24
release Issue
calcium polycarbophil 625 mg 625 mg PO DAILY Constipation 01/10/24
tablet (FiberCon)
NIH Stroke Score
Subsequent NIH Scale
Date of Subsequent NIH Scale: 01/10/24
Time of Subsequent NIH Scale: 10:00
NIH Stroke Score
Level of Consciousness: 0 - Alert
LOC Questions: 0-Answers both correctly
LOC Commands: 0-Performs both correctly
Best Horizontal Gaze: 0-Normal
Visual Hernandez: 0=Normal, no visual loss
Facial Palsy: 0=Normal, symmetrical
Motor - Right Arm: 0=No drift 10 seconds
Motor - Left Arm: 0=No drift 10 seconds
Motor - Right Le-No drift 5 seconds
Motor - Left Le-No drift 5 seconds
Limb Ataxia: 0-Absent
Sensation: 0-Normal
Best Language: 0-No aphasia
Dysarthria: 0-Normal
Extinction and Inattention: 0-No abnormality
Total Score:: 0

Documented by User: Chaka Gaston MD 01/10/24 12:45
Consultation - Neurology 4
-
CONSULTING PHYSICIAN: Chaka Gaston MD
REFERRING PHYSICIAN: Hospitalists/Dr. Londono
DICTATED BY: KADE Beckman
DATE/TIME OF REQUEST: 01/10/24
DATE/TIME OF CONSULTATION: 01/10/24
Reason for Consultation: Vertigo
History of Present Illness:
This is an 83-year-old right-handed female who has presented to the hospital with report of vertigo starting on 01/03/24. Patient reports that on 01/03/24 she started to feel off-balance while walking, which quickly progressed to severe dizziness
which she describes as initially her body was moving, but has turned into the room is moving around her. This sensation has been constant but is worse with any type of movement or eye opening. She endorses severe nausea when she opens her eyes or
moves and has been vomiting several times per day for the past week. She also notes an intractable headache in the center of her head that she describes as a dull ache, it is associated with photo/phonophobia and started around the same time her
dizziness started.
She was evaluated at from 01/03-01/05/24 and had an MRI brain that was unremarkable. 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
symptoms have progressed since then. She was supposed to undergo outpatient PT but had yet to be able to schedule an appointment.
She denies any recent fever, cold symptoms, or illness. She took an at-home COVID test yesterday and reports it was positive, but repeat testing here is negative. She does note that she has felt like her hearing has been progressively getting
worse. She had a hearing test one month ago and reports the results were normal. Yesterday, she notes that she had a crackling sensation in her left ear but she denies any tinnitus or full sensation. She denies any previous history of headaches or
migraines but notes that her daughter and multiple grandchildren have severe migraines. She notes one episode of vertigo about 25 years ago but reports it was much shorter lasting and her symptoms were less severe. She was told at that time that it
was either a TIA or vertigo, she notes that she has never been told she has had a stroke based on head imaging in the past. She is not taking any antiplatelet medications. She denies any vision changes, speech/swallow difficulty, numbness, weakness,
chest pain, palpitations, and shortness of breath.
Past Medical History: Vertigo vs TIA 25 years ago, HLD, GERD, gastritis, depression, benign breast neoplasm
Surgical History: L TKR, L THR, benign breast mass biopsy
Family History: Daughter and multiple grandchildren with migraines.
Social History: Denies tobacco, alcohol, and illicit drug use.
Allergies: Hydromorphone.
Home Medications: See below.
Review of Symptoms:
Patient denies any fever, chest pain, shortness of breath, or symptoms.
�Per the HPI.�All systems are reviewed negative except above.
Physical Exam:
The patient is afebrile, abdomen is nondistended, breathing is unlabored, skin is warm and dry, no edema.
Neurologic Examination:
The patient is awake, alert and oriented x 3. He is able to follow commands and answer questions appropriately. There is no aphasia or dysarthria. On cranial nerve assessment, pupils are 3 mm bilateral, round and reactive to light and
accommodation. Visual hernandez are full. Extraocular movements are intact. +Nystagmus with right and upward gaze. Facial sensations are intact and bilaterally symmetrical, there is no facial asymmetry. Hearing is intact bilaterally to normal
conversation volume. Tongue palate and uvula are midline. Sternocleidomastoid strengths are full bilaterally. Motor strengths are 5/5 bilateral upper and lower extremities on medical research [place] scale. There is no drift or involuntary movement
noted. Deep tendon reflexes are 2+ bilateral upper and lower extremities and Babinski is absent bilaterally. Sensations of touch, temperature and vibration are intact and bilaterally symmetrical. There was no extinction noted on double simultaneous
stimulation. Coordination is intact by finger to nose bilaterally. CINDY gait, patient too symptomatic with movement.
Lab Results: See below.
Neuro Imaging:
1. MRI Brain 01/05/24: No acute intracranial abnormality noted. Mild atrophy with sequelae of mild small vessel ischemic disease.
Differentials for the patient's presentation include:
1. Vertigo syndrome; possibly vestibular neuritis given nystagmus noted with R gaze, vs vestibular migraine.
2. MRI brain negative for stroke, symptom duration too long to be TIA.
Patient has the following risk factors for their symptoms: hx vertigo once before, family history of migraines
Recommendations:
-Provide prochlorperazine 10mg IV now for migraine, continue this q6hrs PRN.
-Continue IVF and supportive care per primary team. Can continue PRN meclizine 25mg for comfort but patient reports this has not helped.
-Physical therapy evaluation.
-DVT prophylaxis.
Discussed patient care with: Dr. Gaston, the patient
Neurology attending note
chief complaint dizziness
history of presenting illness: 83-year-old right-handed female history of GERD depression lumbar spondylosis who has presented to the hospital with vertigo starting on 01/03/24. She started to feel off-balance while walking, which quickly
progressed to severe dizziness which she describes as initially her body was moving, but currently experiences the room is moving around her. This sensation has been constant but is worse with any type of movement or eye opening. She endorses severe
nausea when she opens her eyes or moves and has been vomiting several times per day for the past week. She also notes an intractable headache in the center of her head that she describes as a dull ache, it is associated with photo/phonophobia and
started around the same time her dizziness started.
She was evaluated at from 01/03-01/05/24 and had MRI brain that was unremarkable. 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
have progressed since then. She was supposed to undergo outpatient PT but had yet to be able to schedule an appointment.
She took an at-home COVID test yesterday and reports it was positive, but repeat testing here is negative. She does note that she has felt like her hearing has been progressively getting worse. She had a hearing test one month ago and reports the
results were normal.
She denies any previous history of headaches or migraines but notes that her daughter and multiple grandchildren have severe migraines. She notes one episode of vertigo about 25 years ago but reports it was much shorter lasting and her symptoms
were less severe. She was told at that time that it was either a TIA or vertigo, she notes that she has never been told she has had a stroke based on head imaging in the past. She is not taking any antiplatelet medications. She denies any vision
changes, speech/swallow difficulty, numbness, weakness, chest pain, palpitations, and shortness of breath.
On exam: Patient is awake alert oriented to person place and time speech is fluent with intact comprehension reading repetition
Cranial nerve exam was nonfocal
Motor exam shows normal tone and strength
Reflexes are present
Romberg's positive gait unsteady
Assessment benign positional vertigo
Plan: Meclizine 25 3 times a day
Compazine 10 mg as needed
IV fluids
Vestibular therapy
Ecasa 81mg daily
Patient may be discharged home once medically stable
NIH Stroke Score
NIH Stroke Score
Total Score:: 0
[2024-01-10] MEDS: COMPAZINE 10 MG IV ×2 (09:59→17:35)
[2024-01-10 10:50] LABS: Vitamin D, 25-OH*** 37.3 ng/mL (30-80)
[2024-01-10 11:04] LABS: TSH Reflex To Free T4 1.83 uIU/ml (0.47-4.68)
[2024-01-10 11:46] LABS: Folate 15.2 ng/ml (2.76-20); Vitamin B12 601 pg/ml (239-931)
--- NOTE | 2024-01-10 12:51 | W.PN.HOSP.TC ---
Today's Communication/Plan
-
Continue supportive care
Monitor symptoms
Continue telemetry/monitor heart rate
Assessment / Plan
Assessment / Plan
#Vertigo
-High suspicion for BPPV versus vestibular neuritis versus vestibular migraine
-Presented to the hospital roughly a week ago with similar symptoms; recurred after discharge
-No new symptoms; no focal neurological deficits
-Was previously on meclizine, vomiting prevented efficacy
-Neurology following, continue with prochlorperazine 10 mg IV every 6h
-Will trial further meclizine given nausea seems improved
-Vestibular therapy here, and after discharge
#Sinus bradycardia
-Heart rate was fairly consistently in the 40s upon arrival
-Upon time of my evaluation heart rate improved, 64/min
-Not on any AV hemant antagonists chronically
-Will continue to monitor on telemetry
-Consider TTE, cardiology eval
#GERD
-No known history of erosive disease or Sepulveda's esophagus
-Home medications include omeprazole 40 mg and famotidine twice daily
#HTN
-Per history, not on any antihypertensive regimen
-No history of hypertensive systemic disease
-BP stable here
#HDL
-Home medications include moderate intensity atorvastatin
-No ASCVD history
Anticipated Discharge: Within 24 hours
Subjective/Interval History
-
Date of Service: January 10, 2024
Seen and examined the bedside. No acute events of admission. AFVSS this morning. Heart rate now WNL
She states she still has some vertiginous symptoms though they are improved.
Denies chest pain, dyspnea, palpitations, fevers or chills, urinary issues, GI issues, bleeding or bruising, paresthesias or weakness.
Objective Data
-
Labs:
Laboratory Results
01/10/24
04:19
Sodium 141
Potassium 3.9
Chloride 106
Carbon Dioxide 24
BUN 21 H
Creatinine 0.7
Glucose 98
Calcium 9.2
Vital Signs:
Vital Signs
Temp Pulse Resp BP Pulse Ox
98.0 F 51 12 139/64 95
01/10/24 09:02 01/10/24 09:02 01/10/24 09:02 01/10/24 09:02 01/10/24 10:29
I&O
01/09/24 01/10/24 01/11/24
06:59 06:59 06:59
Intake Total 1200 / 1200
Balance 1200 / 1200
Review of Systems
-
History Source: Patient
All other systems: Reviewed and negative
Physical Exam
-
General: Well Nourished, No Apparent Distress and Comfortable
HEENT: Normocephalic, Atraumatic, Moist Mucous Membranes and PERRLA
Respiratory: Clear to Auscultation and Non Labored Respirations; Negative Wheezes, Rales or Rhonchi
Cardiac: Regular Rhythm and S1/S2; Negative Murmur, Rub or Gallop
GI: Soft, Nontender, Nondistended and Normal Bowel Sounds
Musculoskeletal: No Clubbing, No Cyanosis and No Edema
Skin: Warm and Dry; Negative Rash
Neuro: AO x 3, Nonfocal/Grossly Intact, Central Nerve's Intact and Other (nystagmus w/ Right Gaze)
Psych: Calm
Data Reviewed
-
Labs: Labs Reviewed by me and Discussed with Patient
--- NOTE | 2024-01-10 13:00 | SUR.PHASEI ---
Patient admitted from ED. VSS. Patient having dizziness when sitting/ standing up with associated N/V. Patient AAOx3 and instructed to use call padron for assistance OOB. Patient understands. Call padron within reach.
--- NOTE | 2024-01-10 15:51 | CM ---
Reviewed the chart notes and spoke with the patient via telephone due to Covid + status. The patient is being admitted under observational status. The [facility] letter was reviewed and a copy of the letter was provided to staff to give patient. The
patient had no questions with regards to the letter.
The patient was recently hospitalized (01/03-01/04) and discharged to home with [facility]. The patient resides with her spouse in a one story home with two steps to enter. The patient reports no DME or SNF. The patient confirmed her pharmacy of
choice is the [facility]. CM continues to be available to patient/family and is monitoring medical plan for needs at discharge.
Plan: Discharge plans will depend on the patient's progress.
[2024-01-11 03:36] VITALS: BP 127/56
[2024-01-11] MEDS: LR 1000 IV (06:03)
[2024-01-11 07:10] VITALS: BP 130/71
[2024-01-11] MEDS: LIPITOR 20 MG PO (08:28)
[2024-01-11] MEDS: ASPIR LOW (ENTERIC COATED) 81 MG PO (08:28)
[2024-01-11 09:24] LABS: COVID-19 Antigen Negative (Negative)
[2024-01-11 11:40] VITALS: BP 168/71
--- NOTE | 2024-01-11 11:58 | W.PN.HOSP.TC ---
Today's Communication/Plan
-
Discharge
Assessment / Plan
Assessment / Plan
#Vertigo
-High suspicion for BPPV versus vestibular neuritis versus vestibular migraine
-Presented to the hospital roughly a week ago with similar symptoms; recurred after discharge
-No new symptoms; no focal neurological deficits
-Was previously on meclizine, vomiting prevented efficacy
-Will trial further meclizine given nausea seems improved
-Vestibular therapy here, and after discharge
-Plan to DC on Compazine and oral Valium for 5-day course
-Should follow-up with PCP
#Sinus bradycardia
-Heart rate was fairly consistently in the 40s upon arrival
-Upon time of my evaluation heart rate improved, 64/min
-Not on any AV hemant antagonists chronically
-Will continue to monitor on telemetry
-Consider TTE, cardiology eval
#GERD
-No known history of erosive disease or Sepulveda's esophagus
-Home medications include omeprazole 40 mg and famotidine twice daily
#HTN
-Per history, not on any antihypertensive regimen
-No history of hypertensive systemic disease
-BP stable here
#HDL
-Home medications include moderate intensity atorvastatin
-No ASCVD history
Anticipated Discharge: Today
Subjective/Interval History
-
Date of Service: January 11, 2024
Seen and examined at the bedside. No acute events overnight. AFVSS this morning. On telemetry her heart rate does continue to go down to the low 50s/high 40s when sleeping.
She states she feels much better today and has no complaints. States she would like to go home. Does not recall ever being told her heart rate runs low in the past.
Denies chest pain, lightheadedness, dyspnea, fevers or chills, palpitations, paresthesias or weakness, GI issues, urinary issues, bleeding or bruising
Objective Data
-
Vital Signs:
Vital Signs
Temp Pulse Resp BP Pulse Ox
98.2 F 61 17 130/71 97
01/11/24 07:10 01/11/24 07:10 01/11/24 07:10 01/11/24 07:10 01/11/24 10:36
I&O
01/10/24 01/11/24 01/12/24
06:59 06:59 06:59
Intake Total 1200 / 1200 2079
Balance 1200 / 1200 2079
Review of Systems
-
History Source: Patient
All other systems: Reviewed and negative
Physical Exam
-
General: Well Nourished, No Apparent Distress and Comfortable
HEENT: Normocephalic, Atraumatic and Moist Mucous Membranes
Respiratory: Clear to Auscultation and Non Labored Respirations
Cardiac: Regular Rhythm and S1/S2; Negative Murmur, Rub or Gallop
GI: Soft, Nontender, Nondistended and Normal Bowel Sounds
Musculoskeletal: No Clubbing, No Cyanosis and No Edema
Skin: Warm and Dry; Negative Rash
Neuro: AO x 3, Nonfocal/Grossly Intact and Central Nerve's Intact
Psych: Calm
[2024-01-11] MEDS: COMPAZINE 10 MG IV (12:06)
[2024-01-11] MEDS: TYLENOL 650 MG PO (12:07)
[2024-01-11 14:08] VITALS: BP 129/78
--- NOTE | 2024-01-11 14:08 | CM ---
Reviewed the chart notes and spoke with the patient at the bedside. Patient is being discharged to home today with PT recommendation of outpatient therapy. Patient's daughter to provide transportation. CM continues to be available to
patient/family and is monitoring medical plan for needs at discharge.
Plan: Discharge to home today.
--- NOTE | 2024-01-11 14:33 | W.DCSUMMARY ---
Discharge Summary
Discharge Data
Date of Admission: 01/10/24
Date of Discharge: 01/11/24
-
Pending Results: No
Hospital Course
83-year-old female with GERD, hypertension, hyperlipidemia that presented to the hospital with the complaint of vertigo and room spinning sensation. Differential diagnosis including BPPV versus vestibular neuritis/labyrinthitis versus complex
migraine. Was seen recently in the hospital for similar symptoms with neurologic imaging workup negative. Neurology consulted again, deferred repeat MRI testing. Symptomatically improved the following day. Was treated with IV Compazine 10 mg, 2
mg oral Valium every 8 hours as needed for vertiginous symptoms. 5-day prescriptions for these medications were provided at discharge. Also provided prescription for sublingual Zofran as needed for nausea or vomiting. Was given a referral for
vestibular therapy, recommended calling rehabs to schedule. Should also have follow-up appointment with primary care.
Discharge Plan
-
Patient Disposition: Home (Routine Discharge)
Discharge Diagnosis/Procedures: Vertigo
Condition: Good
Diet: No restrictions
Activity: As tolerated
Driving Restrictions: As prior to admission
Bathing Restrictions: None
Blood Work: None
Others Tests: None
Other Services: PT
Activity Restrictions/Additional Instructions:
After discharge from the hospital you should schedule a follow-up appointment with your family doctor, preferably within 1 week from your discharge. He/she can provide you refills on your medications. Should also monitor your heart rate and
consider cardiology evaluation if it runs low
Prescription was provided for vestibular therapy. Call local rehabs to schedule appointment for vestibular therapy.
Instructions: Vestibular Exercises
Referrals:
Richard Lemus MD [Family Provider] -
Additional Discharge Medication Instructions: Continue with Valium and Compazine every 8 hours as needed for vertigo symptoms
Use zofran sublingual every 8 hours as needed for nausea
Please see handout on vestibular exercises, call local rehab to schedule VT
Prescriptions:
New
prochlorperazine maleate [Compazine] 10 mg tablet
10 mg PO Q8H PRN (Reason: Vertigo) 5 Days Qty: 14 0RF
diazepam [Valium] 2 mg tablet
2 mg PO TID PRN (Reason: Vertigo) 5 Days Qty: 14 0RF
ondansetron 4 mg tablet,disintegrating
4 mg PO Q8H 5 Days Qty: 15 0RF
Continued
atorvastatin 20 mg Tablet
20 mg PO DAILY
famotidine 20 mg Tablet
20 mg PO BID
trazodone 100 mg Tablet
100 mg PO HSPRN PRN (Reason: sleep)
ascorbic acid (vitamin C) [Vitamin C] 500 mg Tablet
1,000 mg PO DAILY
acetaminophen [Tylenol] 325 mg Tablet
650 mg PO Q4HPRN PRN (Reason: mild pain)
omeprazole 40 mg Capsule,Delayed Release(Dr/Ec)
40 mg PO DAILY
gabapentin 300 mg Capsule
300 mg PO HS
calcium polycarbophil [FiberCon] 625 mg Tablet
625 mg PO DAILY
Discharge Orders:
Discharge Patient (As Directed); Ordered 01/11/24
Ordered By: Zion Darby
Discharge Date and Time
Print Language: MOHAWK
== END 2024-01-11 14:34 | disposition home or self-care (01) ==
LOC: 2 NORTH 03:38
PROVIDERS: Emergency Medicine; ADMITTING PHYSICIAN Internal Medicine; ATTENDING PHYSICIAN Internal Medicine; CONSULT PHYSICIAN Psychiatry & Neurology Neurology; EMERGENCY PHYSICIAN Emergency Medicine; FAMILY PHYSICIAN Family Medicine
DX: R42 Dizziness and giddiness (principal); R53.1 Weakness; E86.0 Dehydration; K21.9 Gastro-esophageal reflux disease without esophagitis; E78.00 Pure hypercholesterolemia, unspecified; M19.90 Unspecified osteoarthritis, unspecified site; R10.9 Unspecified abdominal pain; R26.81 Unsteadiness on feet; D64.9 Anemia, unspecified; H53.2 Diplopia; R00.1 Bradycardia, unspecified; I10 Essential (primary) hypertension; R11.2 Nausea with vomiting, unspecified; R51.9 Headache, unspecified; Z86.73 Personal history of transient ischemic attack (TIA), and cerebral infarction without residual deficits; Z96.652 Presence of left artificial knee joint; Z96.642 Presence of left artificial hip joint; Z88.5 Allergy status to narcotic agent; Z11.52 Encounter for screening for COVID-19; Z87.19 Personal history of other diseases of the digestive system
CPT/HCPCS: 80048; 80053; 82306; 82607; 82728; 82746; 83690; 84443; 85025; 87811; 96361; 96374; 97163; 99284; G0378

== ENCOUNTER 2024-03-22 13:45 | Emergency (ER) | payer OTHER, SELFPAY ==
[2024-03-22 13:50] VITALS: BP 123/77
[2024-03-22 15:02] VITALS: BMI 24.9
--- NOTE | 2024-03-22 15:16 | ED.GENMED ---
History of Present Illness
General
Chief Complaint: Fall
Time Seen by Provider: 03/22/24 15:00
History of Present Illness
History of Present Illness:
83-year-old female presents to the emergency department for evaluation of left chest wall and left shoulder injuries sustained after mechanical fall. She was attempting to zulay her puppy when she lost her balance and fell onto the curb landing on
her left side. Denies loss of consciousness or head strike. Has mild pleuritic chest pain to the left chest wall but is worse with any movement. No hemoptysis or dyspnea
Past History
Past History
ED Past Medical History: CVA (TIA), GERD and Hypercholesterolemia
ED Past Surgical History: Gynecological and Orthopedic (Left knee replacement 2021, left total hip replacement 09/18/2023)
Social History
Tobacco: Non-smoker
Alcohol: None
Drug: None
Personal:
Living: with family
Employment: Retired
Family History
Family History: Other (Noncontributory)
Review of Systems
Review of Systems
Allergies reviewed?: Yes
All Other Systems: ROS reviewed and negative except as documented in HPI and ROS
Phy Exam
Physical Exam
Physical Exam:
GEN: Well appearing, NAD, WDWN
HEENT: Oral mucosa moist, no scleral icterus
Cardiac: Regular rate
Lung: No respiratory distress, no tachypnea, lungs clear to auscultation bilaterally
MSK: No gross deformity or injuries moderate swelling to the left proximal upper extremity, range of motion restricted due to pain. Tenderness to the left upper chest wall in the midaxillary and lateral clavicular line, no palpable deformities or
crepitus
Skin: Good color, no pallor or jaundice, no rashes
Neuro: AO x3, moves all extremities freely
Psych: Calm, cooperative
Course
Orders/Labs/Results
Orders:
Orders
03/22/24 13:54
CR Ribs-left 3 Vw W/pa Chest Urgent
Reason For Exam: pain injury
Shoulder, Left, Trauma CR [CR Shoulder, Trauma - Left] Urgent
Comment:
Reason For Exam: pain injury
03/22/24 15:15
Acetaminophen [Tylenol] 1,000 mg PO NOW STA
Lidocaine [Lidocaine 4% Patch] 1 patch TOPICAL NOW STA
Apply Lidocaine patch(s) to:: L chest wall
Ondansetron Orally Disint [Zofran Odt (Orally Disintegrating)] 4 mg PO NOW STA
Oxycodone [Roxicodone] 5 mg PO NOW STA
Vital Signs
Initial and Last Documented VS:
Initial Vital Signs
Temp Pulse Resp BP Pulse Ox
98.5 F 80 16 123/77 100
03/22/24 13:50 03/22/24 13:50 03/22/24 13:50 03/22/24 13:50 03/22/24 13:50
Last Documented Vital Signs
Temp Pulse Resp BP Pulse Ox
98.5 F 80 16 123/77 100
03/22/24 13:50 03/22/24 13:50 03/22/24 13:50 03/22/24 13:50 03/22/24 13:50
MDM/Problems Addressed
MDM/Problems Addressed:
Patient identified to have multiple left-sided rib fractures as well as a left proximal humerus fracture. She was given analgesics and ambulated in the ED under her own power without difficulty. She is suitable for outpatient management.
Encouraged incentive spirometry use
*Critical Care Note
Total Time (30-74mins, 75-104mins- exclusive of procedures): Not Applicable
ED Attending Note
-
Portions of this chart may have been created with voice recognition software.� Occasional wrong word or��sound alike� substitutions may have occurred due to the inherent limitations of voice recognition software.
Discharge Plan
Departure
Patient Disposition: Home (Routine Discharge)
Date of Disposition: 03/22/24
Time of Disposition: 17:20
Patient with high blood pressure during this ER visit?: No
Discharge Problem:
Multiple fractures of ribs, Closed left humeral fracture
Instructions: How to use an incentive spirometer, Rib Fracture
Prescriptions:
New
ondansetron 4 mg tablet,disintegrating
4 mg PO TIDPRN PRN (Reason: nausea/vomiting) Qty: 10 0RF
oxycodone 5 mg tablet
5 mg PO TID PRN (Reason: Pain) Qty: 10 0RF
No Action
atorvastatin 20 mg Tablet
20 mg PO DAILY
famotidine 20 mg Tablet
20 mg PO BID
trazodone 100 mg Tablet
100 mg PO HSPRN PRN (Reason: sleep)
ascorbic acid (vitamin C) [Vitamin C] 500 mg Tablet
1,000 mg PO DAILY
acetaminophen [Tylenol] 325 mg Tablet
650 mg PO Q4HPRN PRN (Reason: mild pain)
omeprazole 40 mg Capsule,Delayed Release(Dr/Ec)
40 mg PO DAILY
gabapentin 300 mg Capsule
300 mg PO HS
calcium polycarbophil [FiberCon] 625 mg Tablet
625 mg PO DAILY
prochlorperazine maleate [Compazine] 10 mg tablet
10 mg PO Q8H PRN (Reason: Vertigo) 5 Days Qty: 14 0RF
diazepam [Valium] 2 mg tablet
2 mg PO TID PRN (Reason: Vertigo) 5 Days Qty: 14 0RF
ondansetron 4 mg tablet,disintegrating
4 mg PO Q8H 5 Days Qty: 15 0RF
Referrals:
Richard Lemus MD [Family Provider] -
Clement Oliva MD [Active] -
Activity Restrictions/Additional Instructions:
Use the incentive spirometer 3 times per day, 10 attempts each time, this will improve your lung expansion and allow for chest muscle rehab
Follow-up with orthopedics as soon as possible regarding the left arm injury
Interventions
Interventions:
*Risk Screen - Suicide Last Done: 03/22/24 17:41
*General Assessment Last Done: 03/22/24 15:03
*Neglect/Abuse Screening Last Done: 03/22/24 15:03
ED- Fall Risk Assessment Last Done: 03/22/24 15:03
*ED COVID-19 Vaccine History Last Done: 03/22/24 15:03
*Nursing Disposition Last Done: 03/22/24 17:41
ED-Musculoskeletal Assessment Last Done: 03/22/24 15:03
ED- Neurological Assessment Last Done: 03/22/24 15:03
ED-Skin Assessment Last Done: 03/22/24 15:03
Discharge Date and Time
Discharge Date/Time: 03/22/24 17:42
Print Language: YAKUT
[2024-03-22] MEDS: ZOFRAN ODT (ORALLY DISINTEGRATING) 4 MG PO (15:55)
[2024-03-22] MEDS: TYLENOL 1000 MG PO (15:56)
[2024-03-22] MEDS: ROXICODONE 5 MG PO (15:57)
[2024-03-22] MEDS: LIDOCAINE 4% PATCH 1 PATCH TOPICAL (15:58)
== END 2024-03-22 17:42 | disposition home or self-care (01) ==
LOC: EMR 13:45
PROVIDERS: EMERGENCY PHYSICIAN Emergency Medicine; FAMILY PHYSICIAN Family Medicine
DX: S22.42XA Multiple fractures of ribs, left side, initial encounter for closed fracture (principal); S42.202A Unspecified fracture of upper end of left humerus, initial encounter for closed fracture; W19.XXXA Unspecified fall, initial encounter; K21.9 Gastro-esophageal reflux disease without esophagitis; E78.00 Pure hypercholesterolemia, unspecified; Z86.73 Personal history of transient ischemic attack (TIA), and cerebral infarction without residual deficits; Z96.652 Presence of left artificial knee joint
CPT/HCPCS: 99283; 71101; 73030

== ENCOUNTER 2024-05-19 12:59 | Outpatient (RCR) | payer OTHER, SELFPAY | END 2024-05-19 23:59 | disposition home or self-care (01) | LOC: RPT 12:59 | PROVIDERS: ATTENDING PHYSICIAN Physician Assistant Medical; FAMILY PHYSICIAN Family Medicine | DX: M25.512 Pain in left shoulder (principal); H81.12 Benign paroxysmal vertigo, left ear; M54.2 Cervicalgia; Z73.6 Limitation of activities due to disability; M62.81 Muscle weakness (generalized); Z91.81 History of falling | CPT/HCPCS: 97010; 97110; 97140; 97162 ==

== ENCOUNTER → 2024-06-17 15:06 | Outpatient (REF) | payer OTHER, SELFPAY | LOC: RAD 15:06 | PROVIDERS: ATTENDING PHYSICIAN Physician Assistant; FAMILY PHYSICIAN Family Medicine | DX: M54.9 Dorsalgia, unspecified (principal); M81.0 Age-related osteoporosis without current pathological fracture; M25.549 Pain in joints of unspecified hand | CPT/HCPCS: 72050; 72072; 72114; 73130 ==

== ENCOUNTER → 2024-06-19 10:59 | Outpatient (REF) | payer OTHER, SELFPAY | LOC: RAD 10:59 | PROVIDERS: ATTENDING PHYSICIAN Physician Assistant; FAMILY PHYSICIAN Family Medicine | DX: M81.0 Age-related osteoporosis without current pathological fracture (principal) | CPT/HCPCS: 77080 ==

== ENCOUNTER 2024-06-23 12:57 | Outpatient (RCR) | payer OTHER, SELFPAY | END 2024-06-23 23:59 | disposition home or self-care (01) | LOC: RPT 12:57 | PROVIDERS: ATTENDING PHYSICIAN Physician Assistant Medical; FAMILY PHYSICIAN Family Medicine | DX: M25.512 Pain in left shoulder (principal); H81.12 Benign paroxysmal vertigo, left ear; M54.2 Cervicalgia; Z73.6 Limitation of activities due to disability; M62.81 Muscle weakness (generalized); Z91.81 History of falling | CPT/HCPCS: 97010; 97110; 97140 ==

== ENCOUNTER 2024-07-14 13:08 | Outpatient (RCR) | payer OTHER, SELFPAY | END 2024-07-14 23:59 | disposition home or self-care (01) | LOC: RPT 13:08 | PROVIDERS: ATTENDING PHYSICIAN Physician Assistant Medical; FAMILY PHYSICIAN Family Medicine | DX: M25.512 Pain in left shoulder (principal); H81.12 Benign paroxysmal vertigo, left ear; M54.2 Cervicalgia; Z73.6 Limitation of activities due to disability; M62.81 Muscle weakness (generalized); Z91.81 History of falling | CPT/HCPCS: 97010; 97110 ==

== ENCOUNTER → 2024-07-23 10:08 | Outpatient (REF) | payer OTHER, SELFPAY | LOC: WDC 10:08 | PROVIDERS: ATTENDING PHYSICIAN Physician Assistant Medical | DX: N63.32 Unspecified lump in axillary tail of the left breast (principal) | CPT/HCPCS: 76642; 77062; 77066 ==

== ENCOUNTER → 2024-08-10 10:20 | Outpatient (REF) | payer OTHER, SELFPAY | LOC: PAVMRI 10:20 | PROVIDERS: ATTENDING PHYSICIAN Physician Assistant Medical; FAMILY PHYSICIAN Family Medicine | DX: M25.562 Pain in left knee (principal); Z96.652 Presence of left artificial knee joint | CPT/HCPCS: 73721 ==

== ENCOUNTER 2024-08-20 16:25 | Outpatient (RCR) | payer OTHER, SELFPAY | END 2024-08-20 23:59 | disposition home or self-care (01) | LOC: RPT 16:25 | PROVIDERS: ATTENDING PHYSICIAN Physician Assistant Medical; FAMILY PHYSICIAN Family Medicine | DX: M25.512 Pain in left shoulder (principal); H81.12 Benign paroxysmal vertigo, left ear; M54.2 Cervicalgia; Z73.6 Limitation of activities due to disability; M62.81 Muscle weakness (generalized); Z91.81 History of falling | CPT/HCPCS: 97110; 97112 ==

== ENCOUNTER 2024-08-27 13:35 | Outpatient (RCR) | payer OTHER, SELFPAY | END 2024-08-27 23:59 | disposition home or self-care (01) | LOC: RPT 13:35 | PROVIDERS: ATTENDING PHYSICIAN Physician Assistant Medical; FAMILY PHYSICIAN Family Medicine | DX: M25.512 Pain in left shoulder (principal); H81.12 Benign paroxysmal vertigo, left ear; M54.2 Cervicalgia; Z73.6 Limitation of activities due to disability; M62.81 Muscle weakness (generalized); Z91.81 History of falling | CPT/HCPCS: 97112 ==

== ENCOUNTER → 2024-09-04 14:31 | Outpatient (REF) | payer OTHER, SELFPAY ==
[2024-09-04 15:42] LABS: ALT (SGPT) 30 U/L (0-35); AST (SGOT) 34 U/L (14-36); Albumin 4.7 g/dl (3.5-5.0); Alkaline Phosphatase 145 U/L (38-126); Blood Urea Nitrogen 25 mg/dl (7-17); Calcium 10.3 mg/dl (8.4-10.2); Carbon Dioxide 22 mmol/L (22-30); Chloride 111 mmol/L (98-107); Glucose 119 mg/dl (70-99); Potassium 4.4 mmol/L (3.5-5.1); Sodium 142 mmol/L (135-145); Total Bilirubin 0.7 mg/dl (0.2-1.3); Total Protein 7.1 g/dl (6.3-8.2)
== END ==
LOC: REG 14:31
PROVIDERS: ATTENDING PHYSICIAN Registered Nurse Critical Care Medicine; FAMILY PHYSICIAN Family Medicine
DX: Z13.9 Encounter for screening, unspecified (principal)
CPT/HCPCS: 36415; 80053

== ENCOUNTER → 2024-09-08 13:23 | Outpatient (REF) | payer OTHER, SELFPAY | LOC: RAD 13:23 | PROVIDERS: ATTENDING PHYSICIAN Registered Nurse Critical Care Medicine; FAMILY PHYSICIAN Family Medicine | DX: R42 Dizziness and giddiness (principal) | CPT/HCPCS: 70496; 70498; Q9967 ==

== ENCOUNTER → 2024-11-07 07:47 | Outpatient (REF) | payer OTHER, SELFPAY | LOC: RAD 07:47 | PROVIDERS: ATTENDING PHYSICIAN Family Medicine; FAMILY PHYSICIAN Family Medicine | DX: R10.84 Generalized abdominal pain (principal); R19.5 Other fecal abnormalities | CPT/HCPCS: 74177; Q9967 ==

== ENCOUNTER 2024-11-11 10:47 | Emergency (ER) | payer OTHER, SELFPAY ==
[2024-11-11 10:56] VITALS: BP 128/64
--- NOTE | 2024-11-11 11:01 | ED.GENMED ---
History of Present Illness
General
Chief Complaint: Extremity Pain (non-traumatic)
Source: patient
Exam Limitations: none
Time Seen by Provider: 11/11/24 10:53
History of Present Illness
History of Present Illness:
See MDM
Past History
Past History
ED Past Medical History: CVA (TIA), GERD and Hypercholesterolemia
ED Past Surgical History: Gynecological and Orthopedic (Left knee replacement 2021, left total hip replacement 09/18/2023)
Social History
Tobacco: Non-smoker
Alcohol: None
Drug: None
Personal:
Living: with family
Employment: Retired
Family History
Family History: Other (Noncontributory)
Phy Exam
Physical Exam
Physical Exam:
See MDM
Course
Orders/Labs/Results
Orders:
Orders
11/11/24 10:58
Oxycodone/Acetaminophen [Percocet 5/325] 1 tablet PO NOW STA
Hip, Right 2-3 Views [CR Hip - RT w/wo Pel 2-3 Vw*] Urgent
Comment:
Reason For Exam: fall, R hip pain
Include a pelvis x-ray?: Yes
Vital Signs
Initial and Last Documented VS:
Initial Vital Signs
Temp Pulse Resp BP Pulse Ox
99.0 F 85 16 128/64 97
11/11/24 10:56 11/11/24 10:56 11/11/24 10:56 11/11/24 10:56 11/11/24 10:56
Last Documented Vital Signs
Temp Pulse Resp BP Pulse Ox
99.0 F 76 16 109/61 97
11/11/24 10:56 11/11/24 12:00 11/11/24 12:00 11/11/24 12:00 11/11/24 12:00
MDM/Problems Addressed
Differential Diagnosis Includes:
Note:
CHIEF COMPLAINT(S)
Right hip and right pain following a fall.
HISTORY OF PRESENT ILLNESS
The patient is an 84-year-old female with previously known hip issues, who presented with pain in her right hip and leg following a fall. She reported that, due to attending a four-hour event, she sat in uncomfortable seats and later rode in the
back of a truck, which she typically avoids. Upon exiting the vehicle, she missed the running board and landed hard on her feet. The pain localized primarily to her hip, buttock, and radiated down to her knee. While lifting her leg, she experienced
significant discomfort, though she was able to elevate the leg with difficulty. She currently takes Tramadol for pain and expressed tolerance for stronger pain medication.
PHYSICAL EXAM
General: Alert, no acute distress. Patient is able to bear weight.
Skin: Warm, dry.
Head: Normocephalic, atraumatic
Neck: Appears supple, trachea midline.
Eyes, Ears, Nose, Mouth, and Throat: Oral mucosa moist.
Cardiovascular: No signs of cyanosis
Respiratory: Respirations are non-labored.
Abdomen: Non-distended
Musculoskeletal: No deformities. Negative straight leg raise. Pain localized to right hip and right pelvis. Pelvis stable compression. Distal extremity neurovascular intact
Neurological: No focal neurological deficit observed.
Psychiatric: Cooperative, appropriate mood and affect.
PLAN
1. Obtain X-rays of the hip to rule out fractures or other significant injuries.
2. Administer Percocet for pain management.
3. Consider physical therapy based on the results of imaging and ongoing need for pain management.
DIFFERENTIAL DIAGNOSIS
The Differential Diagnosis includes, in no particular order and is not limited to:
1. Hip fracture
2. Hip contusion
3. Osteoarthritis exacerbation
4. Lumbar radiculopathy
5. Trochanteric bursitis
6. Sacroiliitis
7. Piriformis syndrome
8. Sciatica
9. Muscle strain
10. Greater trochanteric pain syndrome
SUMMARY OF ENCOUNTER
The patient, an 84-year-old female, presented with left hip and leg pain following a fall. X-rays of the hip and pelvis were obtained and no obvious fracture was observed. After administration of pain medications, the patient reported significant
improvement in symptoms. Discussion took place regarding transitioning from tramadol to oxycodone for pain management due to persisting discomfort, factoring in the potential side effect of constipation. Outpatient orthopedic follow-up was advised
as hip replacement had been previously suggested.
DISPOSITION
Discharge. The patient felt comfortable going home.
PLAN
1. Discharge the patient with instructions to follow up with orthopedic specialists regarding the previously recommended hip replacement.
2. Transition from Tramadol to Oxycodone for pain management, with caution advised regarding potential constipation side effects.
3. Recommend monitoring and managing pain levels and side effects at home.
PATIENT EDUCATION AND COUNSELING
Discussed with the patient the plan to switch from tramadol to oxycodone for pain management and the associated risk of constipation. Advised the patient on the importance of following up with orthopedics for further evaluation regarding the hip
replacement.
FOLLOW-UP INSTRUCTIONS
Follow up with orthopedic specialists as planned, particularly to assess the possibility and timing of a hip replacement.
MEDICATION RECONCILIATION
Transition from Tramadol to Oxycodone was discussed for pain management. The consideration was made to manage potential side effects such as constipation.
MEDICAL DECISION MAKING
- Number and Complexity of Problems Addressed: Chronic conditions affecting care include previously known hip issues. Differential diagnosis includes hip fracture, hip contusion, and osteoarthritis exacerbation, among others.
- Risk: Consideration of Admission/Observation: Escalation of care including admission/observation was considered given the complexity and risk of the patients presenting complaint, exam findings, and underlying comorbidities. However, ultimately it
was decided that the patient is safe for outpatient management with close follow-up. Reasoning: Work-up was reassuring with no acute life/organ-threatening conditions detected, and the patients symptoms were well-controlled upon reevaluation. The
patient agreed with discharge and is reliable for follow-up. Prescription drug management involved transitioning medication for pain from tramadol to oxycodone, considering patient tolerance and improved symptom control.
DIAGNOSIS
Left hip pain following a fall, unspecified type (ICD-10: M25.552).
*Pulse Oximetry
SaO2: 97
Oxygen Mode of Delivery: Room air
Patient hypoxic: no
*Critical Care Note
Total Time (30-74mins, 75-104mins- exclusive of procedures): Not Applicable
ED Attending Note
-
Portions of this chart may have been created with voice recognition software.� Occasional wrong word or��sound alike� substitutions may have occurred due to the inherent limitations of voice recognition software.
Discharge Plan
Departure
Patient Disposition: Home (Routine Discharge)
Date of Disposition: 11/11/24
Time of Disposition: 12:45
Patient with high blood pressure during this ER visit?: No
Discharge Problem:
Contusion of hip, right
Instructions: Hip Pain ED
Prescriptions:
New
oxycodone 5 mg tablet
5 mg PO Q8H PRN (Reason: Pain) Qty: 14 0RF
No Action
atorvastatin 20 mg Tablet
20 mg PO DAILY
famotidine 20 mg Tablet
20 mg PO BID
trazodone 100 mg Tablet
100 mg PO HSPRN PRN (Reason: sleep)
ascorbic acid (vitamin C) [Vitamin C] 500 mg Tablet
1,000 mg PO DAILY
acetaminophen [Tylenol] 325 mg Tablet
650 mg PO Q4HPRN PRN (Reason: mild pain)
omeprazole 40 mg Capsule,Delayed Release(Dr/Ec)
40 mg PO DAILY
gabapentin 300 mg Capsule
300 mg PO HS
calcium polycarbophil [FiberCon] 625 mg Tablet
625 mg PO DAILY
prochlorperazine maleate [Compazine] 10 mg tablet
10 mg PO Q8H PRN (Reason: Vertigo) 5 Days Qty: 14 0RF
diazepam [Valium] 2 mg tablet
2 mg PO TID PRN (Reason: Vertigo) 5 Days Qty: 14 0RF
ondansetron 4 mg tablet,disintegrating
4 mg PO Q8H 5 Days Qty: 15 0RF
ondansetron 4 mg tablet,disintegrating
4 mg PO TIDPRN PRN (Reason: nausea/vomiting) Qty: 10 0RF
oxycodone 5 mg tablet
5 mg PO TID PRN (Reason: Pain) Qty: 10 0RF
Referrals:
Richard Lemus MD [Family Provider, Family Practice]
Activity Restrictions/Additional Instructions:
Please return for any worsening symptoms.
You may return at any time if you have further concerns.
Please follow up with your doctor at the first available appointment, preferably this week.
You were given a prescription for narcotics. If you require this pain medicine, please take a daily [id number] stool softener to avoid constipation. Do not take the tramadol while you are taking the oxycodone.
Please follow-up with orthopedist that had suggested a hip replacement.
Thank you for choosing [facility].
Interventions
Interventions:
*Risk Screen - Suicide Last Done: 11/11/24 10:48
*General Assessment Last Done: 11/11/24 10:48
*Neglect/Abuse Screening Last Done: 11/11/24 10:48
*ED- Fall Risk Assessment Last Done: 11/11/24 10:48
ED-Skin Assessment Last Done: 11/11/24 10:48
ED-Peripheral Vascular Assessment Last Done: 11/11/24 10:48
ED-Musculoskeletal Assessment Last Done: 11/11/24 10:48
Discharge Date and Time
Print Language: GEORGIAN
[2024-11-11] MEDS: PERCOCET 5/325 1 TABLET PO (11:05)
[2024-11-11 12:00] VITALS: BP 109/61
== END 2024-11-11 12:55 | disposition home or self-care (01) ==
LOC: EMR 10:47
PROVIDERS: EMERGENCY PHYSICIAN Student in an Organized Health Care Education/Training Program; FAMILY PHYSICIAN Family Medicine
DX: S70.01XA Contusion of right hip, initial encounter (principal); W19.XXXA Unspecified fall, initial encounter; E78.00 Pure hypercholesterolemia, unspecified; Z86.73 Personal history of transient ischemic attack (TIA), and cerebral infarction without residual deficits
CPT/HCPCS: 99283; 73502

== ENCOUNTER 2024-11-19 07:17 | Inpatient (IN) | payer OTHER, SELFPAY ==
[2024-11-14 13:48] LABS: Hematocrit 37.2 % (37.0-47.0); Hemoglobin 12.3 g/dL (12.0-16.0); Mean Corp Hgb Conc. 33.1 g/dL (33.0-37.0); Mean Corpuscular Volume 91.4 fL (81.0-99.0); Platelet Count 225 10^3/uL (130-400); Red Cell Dist. Width 12.0 % (11.5-14.5)
[2024-11-14 14:02] VITALS: BMI 23.7
[2024-11-14 14:08] LABS: ALT (SGPT) 25 U/L (0-35); AST (SGOT) 29 U/L (14-36); Albumin 4.6 g/dl (3.5-5.0); Alkaline Phosphatase 162 U/L (38-126); Blood Urea Nitrogen 20 mg/dl (7-17); Calcium 9.3 mg/dl (8.4-10.2); Carbon Dioxide 25 mmol/L (22-30); Chloride 106 mmol/L (98-107); Estimated Creatinine Clearance 35 ml/min; Glucose 119 mg/dl (70-99); Glycohemoglobin (HgbA1c) 5.5 % (4.0-5.6); Potassium 4.4 mmol/L (3.5-5.1); Sodium 138 mmol/L (135-145); Total Protein 6.9 g/dl (6.3-8.2); eGFR > 60.00
[2024-11-18 09:28] VITALS: BMI 23.7
--- NOTE | 2024-11-18 10:13 | CM ---
Addendum entered by Manju Ríos RN 11/20/24 09:20:
CM met with patient. Confirmed demographics. Patient lives independently, but on the same property as her daughter in a [place]. Patient's daughter will be providing transportation. Plan for home PT with transition to outpatient PT when medically
cleared.
PLAN: Home with [facility]
Addendum entered by Manju Ríos RN 11/20/24 09:06:
CM met with patient in room. Patient confirmed demographics. Patient is agreeable to [facility]. Cm updated [facility] Admission RN.
PLAN: Home with [facility].
Original Note:
CM left message for IA. This was a second attempt. CM will follow as needed.
[2024-11-19] VITALS (25 sets, daily range): BP systolic 82–137; BP diastolic 32–73; PULSE 78–82; O2SAT 96
[2024-11-19] MEDS: CELEBREX 200 MG PO (08:33)
[2024-11-19] MEDS: TYLENOL 650 MG PO ×5 (08:33→23:35)
[2024-11-19] MEDS: NORMOSOL-R/PLASMALYTE-A 1000 IV ×2 (08:34→15:51)
--- NOTE | 2024-11-19 10:14 | W.PN.ORTHO ---
Today's Communication / Plan
-
d/c with family when stable
Assessment
.
Dressing:
Clean, dry and intact.
Assessment:
GERD
Schatzki's ring
Hx H. Pylori
Hx GIB w/o admit/transfusion
--PPI BID
Plan
.
Surgery / Date: R MALCOLM Preciado 11/19/24
DVT Prophylaxis: Aspirin
Activity:
Out of bed.
PT/OT
Discharge Plan: Home w/ Outpatient PT
Vital Signs and Labs
.
Vital Signs and Labs:
Lab Results
11/14/24 13:04
11/14/24 13:04
Temp Pulse Resp BP Pulse Ox
97.8 F 71 16 134/73 98
11/19/24 08:10 11/19/24 08:10 11/19/24 08:10 11/19/24 08:10 11/19/24 08:10
--- NOTE | 2024-11-19 10:28 | W.DS.TRANS ---
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
-
Discharge Instructions:
Sleep Apnea Risk Low
Discharge Diagnosis/Procedures R MALCOLM Dr Preciado 11/19/24
Diet As tolerated
Activity With Walker
Driving Restrictions No driving
Bathing Restrictions OK to Shower
Other Services PT
Instructions:
Stand-Alone Forms: Total Hip/Knee Replacement D/C
Changes to Home Medications: Yes
Discharge Medications:
DC Medications w/original date entered in [employer]
atorvastatin 20 mg tablet 20 mg PO DAILY High Cholesterol 12/05/21
ascorbic acid (vitamin C) 500 mg tablet (Vitamin C) 1,000 mg PO DAILY Supplement 08/30/23
famotidine 20 mg tablet 20 mg PO BID Gastrointestinal Issue 08/30/23
trazodone 100 mg tablet 100 mg PO HSPRN PRN sleep 08/30/23
omeprazole 40 mg capsule,delayed release 40 mg PO DAILY Gastrointestinal Issue 01/05/24
prochlorperazine maleate 10 mg tablet (Compazine) 10 mg PO Q8H PRN Vertigo 5 days #14 tabs 01/11/24
calcium carbonate 1,000 mg PO DAILY 11/14/24
celecoxib 200 mg capsule 200 mg PO DAILY Anti-inflammatory #14 caps 11/14/24
dexamethasone 4 mg tablet 4 mg PO BID inflammation #6 tabs 11/14/24
gabapentin 300 mg capsule 300 mg PO HS sleep/pain #10 caps 11/14/24
magnesium citrate 400 mg PO DAILY 11/14/24
mupirocin 2 % topical ointment 1 applic topical BID infection prevention #1 tube 11/14/24
oxycodone 5 mg tablet 5 mg PO Q4H PRN moderate-severe pain #30 tabs 11/14/24
acetaminophen 325 mg tablet (Tylenol) 650 mg (2 x 325 mg) PO QID #0 tabs 11/19/24
aspirin 325 mg tablet 325 mg PO DAILY blood clot prevention #1 tab 11/19/24
docusate sodium 100 mg capsule (Colace) 100 mg PO BID stool softner #1 cap 11/19/24
magnesium hydroxide 400 mg/5 mL oral suspension (Milk of Magnesia) 30 ml PO HS PRN constipation #1 mL 11/19/24
sennosides 8.6 mg tablet (Senokot) 17.2 mg (2 x 8.6 mg) PO BID laxative #2 tabs 11/19/24
Home Medication Changes
celecoxib 200 mg capsule 200 mg PO DAILY Anti-inflammatory #14 caps 11/14/24
dexamethasone 4 mg tablet 4 mg PO BID inflammation #6 tabs 11/14/24
gabapentin 300 mg capsule 300 mg PO HS sleep/pain #10 caps 11/14/24
magnesium citrate 400 mg PO DAILY 11/14/24
mupirocin 2 % topical ointment 1 applic topical BID infection prevention #1 tube 11/14/24
oxycodone 5 mg tablet 5 mg PO Q4H PRN moderate-severe pain #30 tabs 11/14/24
acetaminophen 325 mg tablet (Tylenol) 650 mg (2 x 325 mg) PO QID #0 tabs 11/19/24
aspirin 325 mg tablet 325 mg PO DAILY blood clot prevention #1 tab 11/19/24
docusate sodium 100 mg capsule (Colace) 100 mg PO BID stool softner #1 cap 11/19/24
magnesium hydroxide 400 mg/5 mL oral suspension (Milk of Magnesia) 30 ml PO HS PRN constipation #1 mL 11/19/24
sennosides 8.6 mg tablet (Senokot) 17.2 mg (2 x 8.6 mg) PO BID laxative #2 tabs 11/19/24
Pending Results: No
[2024-11-19] MEDS: ROXICODONE 5 MG PO (12:25)
[2024-11-19] MEDS: NSS (PRESERVATIVE FREE) 10 ML IV (13:24)
[2024-11-19] MEDS: PROTONIX IV 40 MG IV (13:24)
[2024-11-19] MEDS: ROXICODONE 10 MG PO (16:08)
[2024-11-19] MEDS: ASPIRIN 325 MG PO (17:13)
[2024-11-19] MEDS: DECADRON 4 MG IV (17:13)
[2024-11-19] MEDS: TORADOL 15 MG IV (17:14)
[2024-11-19] MEDS: ANCEF 5 IV ×2 (17:15→23:35)
[2024-11-19] MEDS: LIPITOR PO (18:11)
--- NOTE | 2024-11-19 18:14 | PTCARENOTE ---
Telephone report received from Erica RN @[id number], pt arrived in bed @3438. Vital signs stable, neurovascular check documented, admission completed at bedside.
[2024-11-19] MEDS: SENOKOT 17.2 MG PO (20:15)
[2024-11-19] MEDS: BACTROBAN 2% OINTMENT 1 APPLIC NASAL (20:15)
[2024-11-19] MEDS: COLACE 100 MG PO (20:16)
[2024-11-19] MEDS: PROTONIX 40 MG PO (20:17)
[2024-11-19] MEDS: NEURONTIN 300 MG PO (21:55)
[2024-11-20 03:01] VITALS: BP 111/69
[2024-11-20] MEDS: TYLENOL 650 MG PO ×3 (03:45→12:20)
[2024-11-20] MEDS: DECADRON 4 MG IV (05:35)
[2024-11-20] MEDS: TORADOL 15 MG IV (05:35)
[2024-11-20 07:00] VITALS: BP 104/64
[2024-11-20] MEDS: LIPITOR 20 MG PO (08:48)
[2024-11-20] MEDS: COLACE 100 MG PO (08:48)
[2024-11-20] MEDS: PROTONIX 40 MG PO (08:48)
[2024-11-20] MEDS: ASPIRIN 325 MG PO (08:48)
[2024-11-20] MEDS: CELEBREX 200 MG PO (08:48)
[2024-11-20] MEDS: SENOKOT 17.2 MG PO (08:48)
[2024-11-20] MEDS: BACTROBAN 2% OINTMENT 1 APPLIC NASAL (08:54)
[2024-11-20 09:12] VITALS: BP 133/59
[2024-11-20 10:12] VITALS: BP 120/64; PULSE 73; O2SAT 93
--- NOTE | 2024-11-20 11:03 | W.PN.ORTHO ---
Today's Communication / Plan
-
D/c if XR negative
Assessment
.
Distal Motor Intact: Yes
Dressing:
Clean, dry and intact.
Assessment:
GERD
Schatzki's ring
Hx H. Pylori
Hx GIB w/o admit/transfusion
--PPI BID
Constipation
Mucous in stool
Weight loss
--all occurring [id number] out to PCP-see GI-obstruction eries prior to d/c to exclude p/o ileus
Plan
.
Surgery / Date: R MALCOLM Preciado 11/19/24
DVT Prophylaxis: Aspirin
Activity:
Out of bed.
PT/OT
Discharge Plan: Home w/ VN
Subjective
.
.:
Patient resting comfortably.
Vital Signs and Labs
.
Vital Signs and Labs:
Lab Results
11/14/24 13:04
11/14/24 13:04
Temp Pulse Resp BP Pulse Ox
98.0 F 67 18 104/64 95
11/20/24 07:00 11/20/24 07:00 11/20/24 07:00 11/20/24 07:00 11/20/24 07:00
Non-invasive Hgb result: 12.6
Physical Exam
-
HEENT: No pallor, cyanosis, or jaundice. Throat clear.
NECK: Supple. No JVD.
RESPIRATORY: Lungs clear to auscultation.
CVS: S1, S2 normal. RRR.� No murmur, rub or gallop.
ABDOMEN: Soft, non-tender. No distension. BS+/normal.
EXTREMITIES: strength equal, no calf pain with palpation
MUSIC WRITER: AOx3. No focal deficits. dance teacher grossly intact
[2024-11-20 12:02] VITALS: BP 114/86
[2024-11-20] MEDS: MILK OF MAGNESIA 30 ML PO (12:21)
--- NOTE | 2024-11-20 12:42 | VNURNOTE ---
Home Health Liaison met with patient at bedside to discuss [facility] nurse/therapy, visits, schedule and homebound status. Patient is agreeable and understands that visits at home will be 2-3 x per week to assess and teach medical management.
Patient is aware that [facility] will contact them for start of care in 1-2 days after discharge from . Provided contact number for [facility].
[facility] referral accepted in [facility].
--- NOTE | 2024-11-20 15:23 | PTCARENOTE ---
While doing the discharge, patient stated she had not had a BM for several days and had a weight loss of 7 lbs in the last few weeks. Patient did receive MOM this Am with no results. Patient does say she is passing gas and has normal BS. Bella
ILIR Daniels notified. Patient being followed by primary and GI according to daughter. Obstruction series ordered and done. Patient ok for discharge. Spoke with Daughter who is aware of the situation and is picking patient up.
== END 2024-11-20 15:41 | disposition home health service (06) | DRG 470 ==
LOC: 2 SOUTH 07:17
PROVIDERS: ADMITTING PHYSICIAN Orthopaedic Surgery; FAMILY PHYSICIAN Family Medicine
PROC: 0SR9039 Replacement of Right Hip Joint with Ceramic Synthetic Substitute, Cemented, Open Approach (ICD-10-PCS; 2024-11-19)
DX: M16.11 Unilateral primary osteoarthritis, right hip (principal); K21.9 Gastro-esophageal reflux disease without esophagitis; K22.2 Esophageal obstruction; Z86.19 Personal history of other infectious and parasitic diseases; I10 Essential (primary) hypertension; E78.5 Hyperlipidemia, unspecified; Z86.73 Personal history of transient ischemic attack (TIA), and cerebral infarction without residual deficits; J44.9 Chronic obstructive pulmonary disease, unspecified; M81.0 Age-related osteoporosis without current pathological fracture; F32.A Depression, unspecified; F41.9 Anxiety disorder, unspecified; G47.00 Insomnia, unspecified; Z90.711 Acquired absence of uterus with remaining cervical stump; Z96.652 Presence of left artificial knee joint; Z88.5 Allergy status to narcotic agent
CPT/HCPCS: 36415; 73502; 74022; 80053; 83036; 85027; 87070; 93005; 97110; 97116; 97163; 97167; 97530; 97535; C1713; C1776

== ENCOUNTER 2024-11-26 10:05 | Emergency (ER) | payer OTHER, SELFPAY ==
[2024-11-26 10:12] VITALS: BP 116/59
[2024-11-26 11:27] VITALS: BP 112/56; BP 85/60
[2024-11-26 11:30] LABS: Hematocrit 36.6 % (37.0-47.0); Hemoglobin 12.1 g/dL (12.0-16.0); Mean Corp Hgb Conc. 33.1 g/dL (33.0-37.0); Mean Corpuscular Volume 91.3 fL (81.0-99.0); Nucleated Red Blood Cells % 0 %; Platelet Count 262 10^3/uL (130-400); Red Cell Dist. Width 12.5 % (11.5-14.5)
--- NOTE | 2024-11-26 11:36 | ED.GENMED ---
History of Present Illness
General
Chief Complaint: Fall
Time Seen by Provider: 11/26/24 11:08
History of Present Illness
History of Present Illness:
see MDM
Past History
Past History
ED Past Medical History: CVA (TIA), GERD and Hypercholesterolemia
ED Past Surgical History: Gynecological and Orthopedic (Left knee replacement 2021, left total hip replacement 09/18/2023)
Social History
Tobacco: Non-smoker
Alcohol: None
Drug: None
Personal:
Living: with family
Employment: Retired
Family History
Family History: Other (Noncontributory)
Phy Exam
Physical Exam
Physical Exam:
see MDM
Course
Orders/Labs/Results
Orders:
Orders
11/26/24 10:08
Electrocardiogram (*1) Urgent
Reason for Study: Chest Pain
EKG- Treatment ONCE
Hip, Right 2-3 Views [CR Hip - RT w/wo Pel 2-3 Vw*] Urgent
Comment:
Reason For Exam: fall
Include a pelvis x-ray?: Yes
Wrist, Left 3 Views CR [CR Wrist - Left Min 3 Views] Urgent
Comment:
Reason For Exam: pain
11/26/24 10:[address] [CT Head W/o Iv Contrast] Urgent
Comment:
Reason For Exam: fall
11/26/24 11:02
Complete Blood Count/With Diff Urgent
Comprehensive Metabolic Panel Urgent
Troponin I Urgent
11/26/24 11:27
Orthostatic VS- Treatment ONCE
11/26/24 11:30
0.9% Sodium Chloride 1000 ml [Nss] 1,000 ml IV BOLUS
Oxycodone [Roxicodone] 2.5 mg PO NOW STA
Abnormal Lab Results
11/26/24
11:02
WBC 14.2 H 10^3/uL
(4.8-10.8)
RBC 4.01 L 10^6/uL
(4.20-5.40)
Hct 36.6 L %
(37.0-47.0)
Abs Immat Gran (auto) 0.2 H 10^3/uL
(0-0.05)
Absolute Neuts (auto) 12.1 H 10^3/uL
(1.4-6.5)
Absolute Lymphs (auto) 0.7 L 10^3/uL
(1.2-3.4)
Absolute Monos (auto) 1.1 H 10^3/uL
(0.1-0.6)
Immature Gran % 1.3 H %
(0-0.5)
Neutrophils % 85.2 H %
(42.2-75.2)
Lymphocytes % 4.8 L %
(20.5-51.1)
Sodium 133 L mmol/L
(135-145)
BUN 25 H mg/dl
(7-17)
Creatinine 1.1 H mg/dL
(0.6-1.0)
Glucose 114 H mg/dl
(70-99)
Total Protein 6.1 L g/dl
(6.3-8.2)
11/26/24 11:02
11/26/24 11:02
Vital Signs
Initial and Last Documented VS:
Initial Vital Signs
Temp Pulse Resp BP Pulse Ox
37.4 C 81 16 116/59 98
11/26/24 10:12 11/26/24 10:12 11/26/24 10:12 11/26/24 10:12 11/26/24 10:12
Last Documented Vital Signs
Temp Pulse Resp BP Pulse Ox
37.4 C 80 16 119/55 97
11/26/24 10:12 11/26/24 13:55 11/26/24 13:55 11/26/24 14:15 11/26/24 13:55
MDM/Problems Addressed
Differential Diagnosis Includes:
see MDM
MDM/Problems Addressed:
Note:
CHIEF COMPLAINT(S)
Dizziness and fall with possible orthostatic hypotension.
HISTORY OF PRESENT ILLNESS
The patient is an 84-year-old female who presented to the emergency department after experiencing a fall earlier this morning between 8:30 and 8:50 AM. She reports feeling unwell and unsteady as she stepped down a flight of stairs, attributing part
of her sensation to vertigo, which she has been treated for in the past with therapy. The patient did not experience any chest pain or nausea but recalls a spinning sensation associated with her vertigo, which she describes has been an ongoing issue.
A visiting nurse, scheduled to arrive at 9:30 AM, noted the patients blood pressure was low, approximately in the 60s, which was particularly concerning considering a recent hospital visit where blood pressure was reportedly low. The patient did not
blackout but did hit her head on the floor during the fall, experiencing a mild headache post-incident without any significant nausea or memory impairment.
Post-fall, the patient was noted to experience pain primarily in her wrist and hip, worsened by movement. She has a history of recent right hip replacement surgery on 11/19,
She has not been taking blood pressure medication, and there is no history of chest pain or significant chest discomfort noted during the event.
Current standing blood pressure was noted to drop from 112/56 to 85/60, suggestive of orthostatic hypotension. A
PAST MEDICAL AND SURGICAL HISTORY
Recent right hip replacement surgery.
CHRONIC MEDICAL CONDITIONS SIGNIFICANTLY AFFECTING CARE
Vertigo.
ALLERGIES
Allergic to dilaudid.
PHYSICAL EXAM
- Hemodynamics: Initial blood pressure 112/56, with orthostatic drop to 85/60 upon standing. Nursing notes reviewed and vital signs reviewed.
GENERAL: Alert , in no apparent distress
head: forehead ecchymosis/contusion L side; abrasion superficial
EYE: pupils equal and reactive
NECK: Supple, nontender, full painless ROM
ENT: o/p clr, mmm.
CARDIAC: Regular rate and rhythm .no edema
LUNGS: Clear breath sounds bilaterally, no acute respiratory distress, no wheezes/rales/rhonchi
ABDOMEN: Soft, without focal tenderness, no r/g, no cvat, normal bowel sounds
back: nontender
NEUROLOGICAL: Alert and oriented, no focal neuro deficits, cn intact
SKIN: Warm and dry, skin intact.
bruising to R lateral hip
pt has intact incision R lateral hip
MUSCULOSKELETAL R hip swelling/bruising
able to flex
L wrist mild swelling
tender radius
no deformity
no other joint tendenress
PSYCH: Normal and appropriate interaction.
PROBLEM LIST
- Acute: Fall with concussion risk, orthostatic hypotension.
- Chronic: Vertigo.
PLAN
- Initiate intravenous fluids to address possible dehydration due to recent surgery and postoperative requirements.
- Monitor blood pressure serially to assess for improvement with fluid resuscitation.
- Pain management with acetaminophen as needed, avoiding dilaudid due to allergy.
- Consider evaluation for potential anemia; review complete blood count when available.
- Educate on orthostatic precautions, including slow transitions from supine to upright positions.
- Notify orthopedic surgeon regarding recent fall post-hip replacement, ensuring appropriate follow-up care.
DIFFERENTIAL DIAGNOSIS
The Differential Diagnosis includes, in no particular order and is not limited to:
1. Orthostatic hypotension
2. Dehydration
3. Postoperative anemia
4. Benign paroxysmal positional vertigo
5. Vertebrobasilar insufficiency
6. Arrhythmia
7. Medication effects
8. Inner ear disorder
9. Transient ischemic attack
10. Syncope due to cardiovascular causes
11/26/24 - 13:08
Patient is experiencing mild dehydration with a slight increase in a kidney marker likely due to dehydration. Bloodwork also shows mild leukocytosis; no urinary symptoms or cough or fever. likey reactive from recent surgery. xray of wrist indep
reviewed
nondisplaced L radius fx; d/w dr. acosta pt's surgeon who is aware of the fall, Wrist brace usage for recent fall is approved, and the hardware remains intact inthe hip. Patient currently only reports mild pain and does not exhibit signs of urinary
infection. After completing the IV fluids, the plan is to mobilize the patient to assess for light-headedness. If symptoms resolve, discharge is considered; otherwise, overnight observation with additional fluids may be necessary.
1400 - reassessed
feels well standing
wants to go home
no fever, but given strict return precautions
Note:
Disposition:
SUMMARY OF ENCOUNTER
The patient, 84-year-old female, presented to the emergency department after a fall that occurred while walking down the steps, preceded by feelings of lightheadedness. She did not experience a true vertigo sensation but reported feeling slightly
dizzy. During her recent hospitalization for a right hip replacement, it was noted that her blood pressures were low. After the fall, she experienced pain in her left wrist and some pain in her right hip but remained ambulatory. A visiting nurse
recorded a very low blood pressure reading. The patient reported decreased oral intake. She has been taking oxycodone 5 mg for pain management. On examination, orthostatic hypotension was confirmed, with a blood pressure of 80/50 mmHg upon standing.
Hemoglobin levels were stable; however, mild elevation in white blood cell count was observed, likely related to her recent surgery. BUN and creatinine levels were slightly elevated, indicative of mild dehydration. She was administered a liter of IV
fluids. After reassessment, the patient reported feeling well, with standing blood pressure showing improvement and no significant orthostatic symptoms. She declined further observation and preferred discharge.
ASSESSMENT
The patient likely experienced orthostatic hypotension secondary to dehydration, exacerbated by decreased oral intake and postoperative recovery.
PLAN
- Initiate patient on a regimen to increase oral fluid intake.
- Continue to monitor her blood pressure at home.
- Modify oxycodone dosage to 2.5 mg every 6-8 hours as needed for pain, instead of 5 mg.
- Educate the patient and family on the signs of dehydration and orthostatic hypotension, advising to seek medical attention if symptoms worsen.
- Encourage proper pain management and reinforce adherence to medications.
INDEPENDENT REVIEW OF LABS AND INTERPRETATION OF TESTS
My independent review of the patients bloodwork indicates mild leukocytosis, stable hemoglobin, and slight elevation in BUN and creatinine levels, consistent with mild dehydration.
MEDICATION RECONCILIATION
The patient is currently prescribed oxycodone 5 mg. It is recommended to adjust the dose to 2.5 mg every 6-8 hours for pain management.
PATIENT EDUCATION AND COUNSELING
The patient and family were advised on the importance of maintaining adequate hydration, managing orthostatic hypotension, and adjusting medication dosages as directed. Return precautions were provided to monitor for signs of fever or increased
dizziness.
FOLLOW-UP INSTRUCTIONS
Follow up with primary care physician and orthopedic surgeon as needed for ongoing postoperative care and monitoring of blood pressure and hydration status.
MEDICAL DECISION MAKING
-Complexity of Data Reviewed: Chronic conditions affecting care include recent right hip replacement and vertigo. Differential diagnosis considerations include orthostatic hypotension, dehydration, benign paroxysmal positional vertigo, and
postoperative anemia.
-Data:
Category 1
My independent review of lab tests indicates mild leukocytosis and stable hemoglobin, with BUN and creatinine elevations pointing to dehydration.
Category 3
Discussion of management was held with the patient regarding discharge and outpatient care.
CRITICAL CARE TIME
Not applicable.
DIAGNOSIS
- Orthostatic hypotension (ICD-10: I95.1)
- Dehydration (ICD-10: E86.0)
- Aftercare following joint replacement surgery (ICD-10: Z47.1)
- Vertigo (ICD-10: R42)
*Pulse Oximetry
SaO2: 98
Oxygen Mode of Delivery: Room air
Patient hypoxic: no
*Critical Care Note
Total Time (30-74mins, 75-104mins- exclusive of procedures): Not Applicable
ED Attending Note
-
Portions of this chart may have been created with voice recognition software.� Occasional wrong word or��sound alike� substitutions may have occurred due to the inherent limitations of voice recognition software.
Discharge Plan
Departure
Patient Disposition: Home (Routine Discharge)
Date of Disposition: 11/26/24
Time of Disposition: 14:03
Patient with high blood pressure during this ER visit?: No
Condition: Fair
Covid-19: Not Applicable
Discharge Problem:
Fall, Minor head injury, Closed left radial fracture, Orthostatic hypotension
Instructions: Orthostatic hypotension, Head Injury in Adults (DC), Wrist Fracture
Prescriptions:
No Action
atorvastatin 20 mg Tablet
20 mg PO DAILY
famotidine 20 mg Tablet
20 mg PO BID
trazodone 100 mg Tablet
100 mg PO HSPRN PRN (Reason: sleep)
ascorbic acid (vitamin C) [Vitamin C] 500 mg Tablet
1,000 mg PO DAILY
Rx Instructions:
gummy
omeprazole 40 mg Capsule,Delayed Release(Dr/Ec)
40 mg PO DAILY
prochlorperazine maleate [Compazine] 10 mg tablet
10 mg PO Q8H PRN (Reason: Vertigo) 5 Days Qty: 14 0RF
calcium carbonate 500 mg calcium (1,250 mg) Tablet
1,000 mg PO DAILY
Rx Instructions:
gummy
magnesium citrate 200 mg
400 mg PO DAILY
Rx Instructions:
gummy
mupirocin 2 % ointment
1 applic topical BID Qty: 1 0RF
Patient Comments:
Patient administered this medoication today 11/19/24 @ 06 ;00. Patient started this medication administration on 11/17/24 in the morning.
celecoxib 200 mg capsule
200 mg PO DAILY Qty: 14 0RF
Rx Instructions:
*POST-OP USE ONLY
*take with food
dexamethasone 4 mg tablet
4 mg PO BID Qty: 6 0RF
Rx Instructions:
take with food
post-op use only
gabapentin 300 mg capsule
300 mg PO HS Qty: 10 0RF
Rx Instructions:
*POST-OP USE ONLY
oxycodone 5 mg tablet
5 mg PO Q4H PRN (Reason: moderate-severe pain) Qty: 30 0RF
Rx Instructions:
Ongoing therapy
POST-OP USE ONLY
aspirin 325 mg tablet
325 mg PO DAILY Qty: 1 0RF
Rx Instructions:
Take with food
docusate sodium [Colace] 100 mg capsule
100 mg PO BID Qty: 1 0RF
magnesium hydroxide [Milk of Magnesia] 400 mg/5 mL suspension
30 ml PO HS PRN (Reason: constipation) Qty: 1 0RF
Rx Instructions:
CONTINUE colace W/senokot-if no bowel movement 1 day POST-OP -add milk of mag
sennosides [Senokot] 8.6 mg tablet
17.2 mg PO BID Qty: 2 0RF
acetaminophen [Tylenol] 325 mg Tablet
650 mg PO QID Qty: 0 0RF
Referrals:
Richard Lemus MD [Family Provider, Family Practice] - Follow up in 5-7 days
Activity Restrictions/Additional Instructions:
YOU WERE MILDLY DEHYDRATED LIKELY LOWERING YOUR BLOOD PRESSURE AND CAUSING YOU TO FALL DUE TO LIGHTHEADEDNESS
YOUR HEAD CT WAS NEGATIVE
YOU HAVE A NONDISPLACED LEFT RADIUS FRACTURE
WEAR THE BRACE AND FOLLOW UP WITH ORTHOPEDICS
YOUR HIP HARDWARE APPEARS INTACT
ICE OFF AND ON
CONTINUE YOUR PAIN MEDS BUT MAYBE TAKE 2.5 MG OXYCODONE RATHER THAN FULL STRENGTH
STAY HYDRATED
RETURN FOR REPEATED EPISODES OF NEAR PASSING OUT, OR ANY CONCERNS.
Interventions
Interventions:
*Risk Screen - Suicide Last Done: 11/26/24 10:10
*Neglect/Abuse Screening Last Done: 11/26/24 10:10
*ED- Fall Risk Assessment Last Done: 11/26/24 10:12
*Nursing Disposition Last Done: 11/26/24 14:16
ED-Musculoskeletal Assessment Last Done: 11/26/24 11:08
ED- Neurological Assessment Last Done: 11/26/24 11:08
ED-Skin Assessment Last Done: 11/26/24 11:08
Discharge Date and Time
Discharge Date/Time: 11/26/24 14:17
Print Language: MOSOTHO
[2024-11-26 11:40] LABS: Troponin I < 0.012 ng/ml
[2024-11-26 11:44] LABS: ALT (SGPT) 33 U/L (0-35); AST (SGOT) 31 U/L (14-36); Albumin 3.9 g/dl (3.5-5.0); Alkaline Phosphatase 123 U/L (38-126); Blood Urea Nitrogen 25 mg/dl (7-17); Calcium 8.8 mg/dl (8.4-10.2); Carbon Dioxide 25 mmol/L (22-30); Chloride 102 mmol/L (98-107); Glucose 114 mg/dl (70-99); Potassium 5.1 mmol/L (3.5-5.1); Sodium 133 mmol/L (135-145); Total Protein 6.1 g/dl (6.3-8.2); eGFR 50.17
[2024-11-26] MEDS: ROXICODONE 2.5 MG PO (11:46)
[2024-11-26] MEDS: NSS 1000 IV (11:58)
[2024-11-26 13:54] VITALS: BP 98/52
[2024-11-26 13:55] VITALS: BP 88/49; BP 99/48
[2024-11-26 14:15] VITALS: BP 119/55
== END 2024-11-26 14:17 | disposition home or self-care (01) ==
LOC: EMR 10:05
PROVIDERS: EMERGENCY PHYSICIAN Emergency Medicine; FAMILY PHYSICIAN Family Medicine
DX: S09.90XA Unspecified injury of head, initial encounter (principal); S52.502A Unspecified fracture of the lower end of left radius, initial encounter for closed fracture; I95.1 Orthostatic hypotension; E86.0 Dehydration; D72.829 Elevated white blood cell count, unspecified; E78.00 Pure hypercholesterolemia, unspecified; K21.9 Gastro-esophageal reflux disease without esophagitis; Z96.642 Presence of left artificial hip joint; Z86.73 Personal history of transient ischemic attack (TIA), and cerebral infarction without residual deficits; Z88.5 Allergy status to narcotic agent; Z96.652 Presence of left artificial knee joint; W10.9XXA Fall (on) (from) unspecified stairs and steps, initial encounter; W22.8XXA Striking against or struck by other objects, initial encounter; Y93.01 Activity, walking, marching and hiking
CPT/HCPCS: 99284; 96360; 70450; 73110; 73502; 80053; 84484; 85025; 93005

== ENCOUNTER → 2025-03-12 15:21 | Outpatient (REF) | payer OTHER, SELFPAY | LOC: RAD 15:21 | PROVIDERS: ATTENDING PHYSICIAN Internal Medicine Gastroenterology; FAMILY PHYSICIAN Family Medicine | DX: K21.9 Gastro-esophageal reflux disease without esophagitis (principal) | CPT/HCPCS: 71260; Q9967 ==